=== PATIENT | female | born 1945 | race Two or more races ===

== ENCOUNTER 2016-11-30 06:21 | Day surgery (SDC) | payer OTHER ==
[2016-11-29 14:33] VITALS: BMI 29.2
[2016-11-30] MEDS ORDERED: LIDOCAINE HCL 1%, 10 MG/ML (20ML VIAL) ONE (07:25)
[2016-11-30] MEDS ORDERED: BUPIVACAINE HCL/PF 0.5% (5MG/ML) 10 ML VIAL ONE (07:25)
[2016-11-30] MEDS ORDERED: MIDAZOLAM HCL 2 MG/2 ML SINGLE DOSE VIAL ONE (07:35)
[2016-11-30] MEDS ORDERED: LIDOCAINE HCL/PF 2% SDV 5ML VIAL ONE (07:35)
[2016-11-30] MEDS ORDERED: PROPOFOL 20 ML ONE ×2 (07:35→07:37)
[2016-11-30] MEDS ORDERED: ceFAZolin SODIUM 1 GM VIAL ONE (07:59)
[2016-11-30] MEDS ORDERED: ceFAZolin SODIUM 1 GM VIAL IVPB ONE (08:14)
[2016-11-30] MEDS ORDERED: BACITRACIN 30 GM TUBE TOPICAL OINTMENT ONE (08:16)
[2016-11-30] MEDS ORDERED: LIDOCAINE HCL 1%, 10 MG/ML (20ML VIAL) IJ ONE (08:25)
--- NOTE | 2016-11-30 08:37 | OP ---
Operative Note - Note: Operative Date: 11/30/16 Pre-Operative Diagnosis: L great toe non-healing ulcer with osteomyelitis Operation: L great toe debridement of ulcer and bone biopsy Post-Operative Diagnosis: Same as Pre-op Surgeon: Yogi Esposito Anesthesia: Local, MAC Specimens Removed: Bone, left great toe Estimated Blood Loss (mls): 5 Instrument used (Debridements only): Curette Operative Report Dictated: Yes
[2016-11-30] MEDS ORDERED: oxyCODONE HCL 5 MG TABLET PO PRN (08:40)
[2016-11-30 08:54] VITALS: TEMP 97.4
[2016-11-30] MEDS ORDERED: ONDANSETRON 4 MG/2 ML VIAL IVPUSH PRN (09:50)
[2016-11-30] MEDS ORDERED: LACTATED RINGERS SOLUTION 1,000 ML IV SCH (10:00)
[2016-11-30] MEDS ORDERED: oxyCODONE HCL 5 MG TABLET ONE (10:52)
[2016-11-30] MEDS ORDERED: oxyCODONE HCL 5 MG TABLET PO ONE (11:00)
--- NOTE | 2016-11-30 11:37 | OP ---
DATE OF OPERATION: 11/30/2016 PREOPERATIVE DIAGNOSIS: Left great toe ulcer with osteomyelitis. POSTOPERATIVE DIAGNOSIS: Left great toe ulcer with osteomyelitis. PROCEDURE: Left great toe debridement of ulcer with bone biopsy. SURGEON: Yogi Esposito DPM MANAGEMENT TRAINEE: None. ANESTHESIA: Local with IV sedation. HEMOSTASIS: None. ESTIMATED BLOOD LOSS: Minimal. PATHOLOGY: Distal phalanx left great toe bone. COMPLICATIONS: None. DESCRIBE OF PROCEDURE: The patient was brought to the operating room and placed on the operating room table in the supine position. I applied a pneumatic ankle tourniquet to the left ankle; however, I elected to not use hemostasis during the course of this procedure. Following the induction of IV sedation, local anesthesia was achieved utilizing 7 mL of 2% lidocaine plain. The left foot was then scrubbed, prepped, and draped in the usual aseptic fashion. I directed my attention to the left great toe where an ulcer along the lateral nailfold with exposed matrix was visualized and appreciated. I began the procedure by performing an excisional debridement of subcutaneous tissue and nail matrix to the level of subcutaneous tissue utilizing a small curette. Of note, there was healthy bleeding noted with underlying granular tissue. Once debridement was completed, I made a 2-cm fishmouth incision over the distal medial aspect of the tuft of the toe. The incision was deepened using sharp and blunt dissection taking care to retract vital neural and vascular structures. Next, a transverse periosteal incision was performed to expose the tip of the distal phalanx. Next, a Jamshidi bone biopsy was used to core out a small piece of bone from the distal phalanx. This core of bone was sectioned 1 piece to be sent to Pathology for analysis and the other to be sent as a bone culture. Surgical sites were copiously irrigated with sterile saline. The incision was coapted and maintained utilizing 4-0 nylon in a simple interrupted suture fashion. Following the conclusion of the procedure, the wound bed was dressed with bacitracin, and a sterile compressive dressing was applied to the left foot consisting of sterile gauze, Sujit, and Kerlix. The patient tolerated the procedure and anesthesia well without complications. She was transferred from the operating room to the recovery unit with vital signs stable and neurovasculature intact to the left foot. GUERO LAINEZ/[id number]
[2016-11-30 12:19] VITALS: BP 135/80; PULSE 65
--- NOTE | 2016-12-01 10:11 | PATH ---
Surgical Pathology Report Patient Name: SAMY PATTERSON [facility] [place]. Rec. #: [id number] /Age/Gender: 1945 (Age: 71) / F Account: [id number] Location: [facility] SURGICAL Taken: 11/30/2016 Received: 11/30/2016 Reported: 12/01/2016 Physicians: Yogi Esposito DPM Specimen(s) Received LEFT GREAT TOE DEBRIDEMENT Clinical History Left great toe osteomyelitis Final Diagnosis BONE, LEFT GREAT TOE, DEBRIDEMENT AND BIOPSY: BONE WITH INTERSTITIAL FIBROSIS CONSISTENT WITH REACTIVE CHANGES. NO OSTEOMYELITIS IDENTIFIED. Electronically Signed Ulises Larose M.D. Gross Description Received in formalin, labeled "left great toe debridement," is a 0.2 cm in length x 0.1 cm in diameter polanco, cylindrical portion of bone. The specimen is submitted in toto in one cassette, following decalcification. /11/30/201611/30/2016
== END 2016-11-30 12:00 | disposition home or self-care (01) ==
LOC: JASU-SURG 06:21
PROVIDERS: ATTEND Student in an Organized Health Care Education/Training Program
PROC: 0QBR0ZX Excision of Left Toe Phalanx, Open Approach, Diagnostic (ICD-10-PCS; 2016-11-30)
PROC: 0JBR0ZZ Excision of Left Foot Subcutaneous Tissue and Fascia, Open Approach (ICD-10-PCS; principal; 2016-11-30 07:30)
DX: M86.8X8 Other osteomyelitis, other site (principal); L98.499 Non-pressure chronic ulcer of skin of other sites with unspecified severity
CPT/HCPCS: 87070; 87075; 87186; 87205; 88304-TC; 88311-TC; 94760

== ENCOUNTER 2018-09-16 15:01 | Observation (INO) | payer OTHER ==
[2018-09-16 15:31] VITALS: TEMP 97.4; BMI 28.3
--- NOTE | 2018-09-16 15:59 | PDOC ---
History of Present Illness - General Chief Complaint: Pain Stated Complaint: STOMACH PAIN Time Seen by Provider: 09/16/18 15:59 - History of Present Illness Initial Comments: 09/16/18 16:00 Ms. Engel is a 73 yo female w/ pmh of HTN, HLD, recent CAD (s/p 2 stents in january) who presents for evaluation of 1 day history of right sided abdominal pain. Patient reports she was fine this morning however began having right sided abdominal pain after eating some chicken soup she had made earlier today. Patient endorses taking medications only intermittently and endorses having nausea / vomiting since pain began today as well as urinary throbbing / pain and the sensation of having to urinate (although reports it is difficult currently). Patient is unable to remember all of her medications. Call to pharmacy elicited below: Lisinopril 10mg daily Carvedilol 12.5mg BID atorvastatin 80mg daily (PM) plavix 75mg daily HCTZ 25mg daily ASA 81mg daily The patient denies chest pain, shortness of breath, headache and dizziness. Denies fever, chills, diarrhea and constipation. Past History - Past Medical History Allergies/Adverse Reactions: Allergies Allergy/AdvReac Type Severity Reaction Status Date / Time Sulfa (Sulfonamide Allergy "RINGING Verified 09/16/18 15:13 Antibiotics) IN EARS" [Sulfa(Sulfonamide Antibiotics)] Home Medications: Ambulatory Orders Amlodipine Besylate/Benazepril [Lotrel 5-20 mg Capsule] 1 each PO DAILY Asthma: (HX BRONCHITIS) Cancer: No Cardiac Disorders: No CVA: No COPD: No CHF: No DVT: Yes Dementia: No Diabetes: Yes (BORDERLINE) GI Disorders: Yes (HEARTBURN OCCAS) Disorders: No HTN: Yes Hypercholesterolemia: Yes Liver Disease: No Seizures: No Thyroid Disease: No - Immunization History Immunization Up to Date: Yes - Suicide/Smoking/Psychosocial Hx Smoking Status: No Smoking History: Never smoked Have you smoked in the past 12 months: No Number of Cigarettes Smoked Daily: 0 Information on smoking cessation initiated: No Hx Alcohol Use: No Drug/Substance Use Hx: No Substance Use Type: None Hx Substance Use Treatment: No Review of Systems - Review of Systems Comments:: 09/16/18 16:55 GENERAL/CONSTITUTIONAL: No fever or chills. No weakness. HEAD, EYES, EARS, NOSE AND THROAT: No change in vision. No ear pain or discharge. No sore throat. CARDIOVASCULAR: No chest pain or shortness of breath RESPIRATORY: No cough, wheezing, or hemoptysis. GASTROINTESTINAL: +N/V w/ right sided abdominal pain as described. No diarrhea or constipation. GENITOURINARY: No dysuria, frequency, or change in urination. MUSCULOSKELETAL: No joint or muscle swelling or pain. No neck or back pain. SKIN: No rash NEUROLOGIC: No headache, vertigo, loss of consciousness, or change in strength/ sensation. ENDOCRINE: No increased thirst. No abnormal weight change HEMATOLOGIC/LYMPHATIC: No anemia, easy bleeding, or history of blood clots. ALLERGIC/IMMUNOLOGIC: No hives or skin allergy. *Physical Exam - Vital Signs Last Vital Signs Temp Pulse Resp BP Pulse Ox 97.4 F L 84 16 260/122 H 100 09/16/18 15:02 09/16/18 15:02 09/16/18 15:02 09/16/18 15:02 09/16/18 15:02 - Physical Exam Comments: 09/16/18 16:55 GENERAL: Awake, alert, and fully oriented, in no acute distress HEAD: No signs of trauma, normocephalic, atraumatic EYES: PERRLA, EOMI, sclera anicteric, conjunctiva clear ENT: Auricles normal inspection, hearing grossly normal, nares patent, oropharynx clear without exudates. Moist mucosa NECK: Normal ROM, supple, no lymphadenopathy, JVD, or masses LUNGS: No distress, speaks full sentences, clear to auscultation bilaterally HEART: Regular rate and rhythm, normal S1 and S2, no murmurs, rubs or gallops, peripheral pulses normal and equal bilaterally. ABDOMEN: +Generalized right sided abdominal pain. Soft, normoactive bowel sounds. No guarding, no rebound. No masses EXTREMITIES: Normal inspection, Normal range of motion, no edema. No clubbing or cyanosis. NEUROLOGICAL: Cranial nerves II through XII grossly intact. Normal speech, normal gait, no focal sensorimotor deficits SKIN: Warm, Dry, normal turgor, no rashes or lesions noted. ED Treatment Course - LABORATORY CBC & Chemistry Diagram: 09/16/18 17:05 09/16/18 17:05 Medical Decision Making - Medical Decision Making 09/16/18 16:52 Ms. Engel is a 73 yo female w/ pmh as described who presents for evaluation of symptoms concerning for dissection vs. kidney stone vs. colitis vs. appendicitis. Patient in hypertensive urgency upon arrival as well. Patient given labetalol at presentation for BP control. EKG regular rate, regular rhythm, inversions in III and avf, no ST elevations or depressions. Non-concerning EKG. 09/16/18 20:10 Patient given home dose of coreg for further BP maintenance. Patient resting comfortably and reporting improvement of symptoms after morphine and GI meds. Chest / abd/ pelvis CTA done for evaluation of possible pain etiologies. Patient currently pending CT read. 09/16/18 21:07 CTA negative for acute process. Labs grossly wnl as below. Will admit patient for further evaluation for hypertensive urgency / abdominal pain. Laboratory Results - last 24 hr 09/16/18 09/16/18 09/16/18 17:05 17:05 17:05 WBC 5.7 RBC 4.35 Hgb 13.2 Hct 38.5 MCV 88.5 MCH 30.4 MCHC 34.3 RDW 14.2 Plt Count 312 MPV 9.1 Absolute Neuts (auto) 3.2 Neutrophils % 56.0 Lymphocytes % 26.1 Monocytes % 14.5 H Eosinophils % 2.8 Basophils % 0.6 Nucleated RBC % 0 PT with INR INR PTT (Actin FS) Sodium 142 Potassium 3.9 Chloride 106 Carbon Dioxide 29 Anion Gap 7 L BUN 18 Creatinine 1.2 Creat Clearance w eGFR 43.91 Random Glucose 101 Calcium 9.0 Magnesium Total Bilirubin 0.9 AST 26 ALT 25 Alkaline Phosphatase 145 H Creatine Kinase 81 Troponin I < 0.02 B-Natriuretic Peptide 595.0 H Total Protein 7.1 Albumin 3.1 L Lipase Urine Color Ltyellow Urine Appearance Slcloudy Urine pH 6.0 Ur Specific [place] 1.019 Urine Protein 2+ H Urine Glucose (UA) Negative Urine Ketones Trace H Urine Blood Negative Urine Nitrite Negative Urine Bilirubin Negative Urine Urobilinogen Negative Ur Leukocyte Esterase Negative Urine WBC (Auto) 3 Urine RBC (Auto) 1 Ur Epithelial Cells Moderate Urine Mucus Rare Blood Type Antibody Screen 09/16/18 09/16/18 09/16/18 17:05 17:05 17:05 WBC RBC Hgb Hct MCV MCH MCHC RDW Plt Count MPV Absolute Neuts (auto) Neutrophils % Lymphocytes % Monocytes % Eosinophils % Basophils % Nucleated RBC % PT with INR 11.80 INR 1.00 PTT (Actin FS) 28.6 Sodium Potassium Chloride Carbon Dioxide Anion Gap BUN Creatinine Creat Clearance w eGFR Random Glucose Calcium Magnesium 2.2 Total Bilirubin AST ALT Alkaline Phosphatase Creatine Kinase Troponin I B-Natriuretic Peptide Total Protein Albumin Lipase 107 Urine Color Urine Appearance Urine pH Ur Specific [place] Urine Protein Urine Glucose (UA) Urine Ketones Urine Blood Urine Nitrite Urine Bilirubin Urine Urobilinogen Ur Leukocyte Esterase Urine WBC (Auto) Urine RBC (Auto) Ur Epithelial Cells Urine Mucus Blood Type O POSITIVE Antibody Screen Negative *DC/Admit/Observation/Transfer Diagnosis at time of Disposition: Hypertensive urgency Abdominal pain Qualifiers: Abdominal location: unspecified location Qualified Code(s): R10.9 - Unspecified abdominal pain - Discharge Dispostion Decision to Admit order: Yes - Referrals Referrals: Christiano Jo [Primary Care Provider] - - Patient Instructions - Post Discharge Activity
[2018-09-16] MEDS ORDERED: ASPIRIN 325 MG TABLET PO ONE (16:10)
--- NOTE | 2018-09-16 16:11 | PDOC ---
Attending Attestation - Resident Resident Name: Jose Roberto Chinchilla - ED Attending Attestation I have performed the following: I have examined & evaluated the patient, The case was reviewed & discussed with the resident, I agree w/resident's findings & plan, Exceptions are as noted - HPI HPI: 09/16/18 16:56 73yo female with hx of CAD w 2 stents a year ago, noncompliant with meds, borderline dm presents for eval of abd pain assoc with nausea and pressure in her lower abd. Pt arrives hypertensive. Pt actively vomiting. Pt states she has been constipated x 1 week - had a small hard BM this AM, no blood, but it was hard. Pt denies f/c. No cp/sob/palpitations. Denies dysuria, but c/o suprapubic pain. Also, R flank pain. NBNB vomiting. - Physicial Exam PE: 09/16/18 16:58 Gen: aaox3, appears uncomfortably, retching during exam, hypertensive 220/112 HEENT: mmm, eomi neck: supple heart: +s1s2 reg lungs: cta b/l abd: soft, suprapubic/rll/RUQ ttp, R cva ttp, epigastric ttp ext: no c/c/e neuro: cn ii-xii grossly intact, no focal neuro deficits, muscle strength intact UE and LE - Critical Care Time Total Critical Care Time: 30 Critical Care Statement: The care of this patient involved high complexity decision making to prevent further life threatening deterioration of the patient 's condition and/or to evaluate & treat vital organ system(s) failure or risk of failure. - Medical Decision Making 09/16/18 16:11 I, Dr. Cinthia Rosa, DO, attest that this document has been prepared under my direction and personally reviewed by me in its entirety. I further attest, that it accurately reflects all work, treatment, procedures and medical decision -making performed by me. 09/16/18 17:00 a/p: 73yo female with hx of CAD now with R sided abd pain assoc with nausea and vomiting -uncontrolled BP -tender abd -concern for aortic dissection given labile BP and severely elevated BP - will obtain cta c/a/p -labs -ua, ekg, cxr -will medicate for BP and for nausea/pain -will monitor and reassess 09/16/18 18:34 labs reviewed pt to ct imaging 09/16/18 22:15 pt with hypertensive urgency- will admit for bp control Heart Score/ECG Review - ECG Intrepretation Comment:: 09/16/18 16:52 sinus jefry at 58, L-colin axis, q waves inferior leads, t wave inversions iii and avf, lvh, abnl ekg, no stemi
[2018-09-16] MEDS ORDERED: morphine CARPU-JECT 2 MG/1 ML DISP.SYRIN IVPUSH ONE (16:21)
[2018-09-16] MEDS ORDERED: LABETALOL HCL 5 MG/1 ML (100MG/20 ML VIAL) IVPUSH ONE (16:21)
[2018-09-16] MEDS ORDERED: ONDANSETRON 4 MG/2 ML VIAL IVPUSH ONE (16:21)
[2018-09-16] MEDS ORDERED: FAMOTIDINE 20 MG/50 ML IVPB 20 MG/50 ML MG IVPB ONE ×2 (16:30→16:38)
[2018-09-16] MEDS ORDERED: MORPHINE SULFATE 2 MG/ML VIAL ONE (16:37)
[2018-09-16] MEDS ORDERED: ONDANSETRON 4 MG/2 ML VIAL ONE (16:38)
[2018-09-16] MEDS ORDERED: LABETALOL HCL 5 MG/1 ML (100MG/20 ML VIAL) ONE (16:38)
[2018-09-16 17:25] LABS: URINE APPEARANCE SLCLOUDY; URINE BILIRUBIN NEGATIVE (<2.0 mg/dL); URINE COLOR LTYELLOW; URINE GLUCOSE (UA) NEGATIVE (NEGATIVE); URINE KETONE TRACE (NEGATIVE); URINE LEUK ESTERASE NEGATIVE (NEGATIVE); URINE NITRITE NEGATIVE (NEGATIVE); URINE PROTEIN 2+ (NEGATIVE); URINE UROBILINOGEN NEGATIVE mg/dL (0.2-1.0)
[2018-09-16 17:26] LABS: BASO % 0.6 % (0-2.0); EOS % 2.8 % (0-4.5); HEMATOCRIT 38.5 % (32.4-45.2); HEMOGLOBIN 13.2 GM/dL (10.7-15.3); LYMPH % 26.1 % (8-40); MCH 30.4 pg (25.7-33.7); MCHC 34.3 g/dl (32.0-36.0); MEAN CELL VOLUME 88.5 fl (80-96); MEAN PLT VOLUME 9.1 fl (7.5-11.1); MONO % 14.5 % (3.8-10.2); PLATELET COUNT 312 K/MM3 (134-434); RBC 4.35 M/mm3 (3.60-5.2); RDW 14.2 % (11.6-15.6); WHITE BLOOD COUNT 5.7 K/mm3 (4.0-10.0)
[2018-09-16 17:41] LABS: PROTHROMBIN TIME (PATIENT) 11.8 SEC (9.7-13.0)
[2018-09-16 17:44] LABS: ACTIVATED PTT 28.6 SECONDS (25.2-36.5)
[2018-09-16 18:02] LABS: MAGNESIUM 2.2 mg/dL (1.8-2.4)
[2018-09-16 18:05] LABS: EPI CELLS MODERATE /HPF (FEW); URINE MUCUS RARE
[2018-09-16 18:13] LABS: ALBUMIN 3.1 g/dl (3.4-5.0); ALK PHOS 145 U/L (45-117); ANION GAP 7 MMOL/L (8-16); BILIRUBIN,TOTAL 0.9 mg/dL (0.2-1); BLOOD UREA NITROGEN 18 mg/dL (7-18); CHLORIDE 106 mmol/L (98-107); CO2 29 mmol/L (21-32); CREATININE 1.2 mg/dL (0.55-1.3); GLUCOSE,RANDOM 101 mg/dL (74-106); POTASSIUM 3.9 mmol/L (3.5-5.1); SGOT/AST 26 U/L (15-37); SGPT/ALT 25 U/L (13-61); SODIUM 142 mmol/L (136-145); TOT PROT 7.1 g/dl (6.4-8.2)
[2018-09-16] MEDS ORDERED: CARVEDILOL 12.5 MG TABLET (FP) PO ONE (19:30)
[2018-09-16] MEDS ORDERED: CARVEDILOL 12.5 MG TABLET (FP) ONE (19:32)
[2018-09-16 21:11] VITALS: BP 187/81; PULSE 70
--- NOTE | 2018-09-16 21:42 | PN ---
Teaching Attending Note Name of Resident: Elio Sweeney ATTENDING PHYSICIAN STATEMENT I saw and evaluated the patient. I reviewed the resident's note and discussed the case with the resident. I agree with the resident's findings and plan as documented. SUBJECTIVE: Patient is a 73 year old woman with PMH of HTN, HLD, recent CAD (s/p 2 stents) and boderline DM who presents for evaluation of 1 day history of right sided abdominal pain. Patient reports she was fine this morning however began having right sided abdominal pain after eating some chicken soup she had made earlier today. Patient take her medications only intermittently and has had nausea and vomiting since pain began today as well as urinary throbbing/pain and the sensation of having to urinate. OBJECTIVE: Alert Vital Signs Period Temp Pulse Resp BP Sys/Pagan Pulse Ox Last 24 Hr 97.4 F 63-84 16-18 187-260/81-122 97-100 HEENT: No Jaundice, eye redness or discharge, PERRLA, EOMI. Normocephalic, atraumatic. External ears are normal and hearing is grossly intact. No nasal discharge. Neck: Supple, nontender. No palpable adenopathy or thyromegaly. No JVD Chest: Good effort. Clear to auscultation and percussion. Heart: Regular. No S3, rub or murmur Abdomen: Not distended, soft, nontender and no HSM. No rebound or guarding. Normoactive bowel sounds. Ext: Peripheral pulses intact. No leg edema. Skin: Warm and dry. No petechiae, rash or ecchymosis. Neuro: Alert. Oriented x3. CN 2-12 grossly intact. Sensation grossly intact in all four extremities and DTR are symmetric. Home Medications Medication Instructions Recorded Amlodipine Besylate/Benazepril 1 each PO DAILY 12/08/15 [Lotrel 5-20 mg Capsule] Abnormal Lab Results 09/16/18 09/16/18 09/16/18 17:05 17:05 17:05 Monocytes % 14.5 H Anion Gap 7 L Alkaline Phosphatase 145 H B-Natriuretic Peptide 595.0 H Albumin 3.1 L Urine Protein 2+ H Urine Ketones Trace H ASSESSMENT AND PLAN: 1. Hypertensive urgency and Abdominal Pain - Patient admits to not taking her medications regularly due stress from family issues. EKG shows bradycardia but no ST-T wave changes of ischemia and initial troponin is negative. Result of Chest and abdomen CT scan to rule out aortic dissection is pending. CXR shows increased interstitial marking and RLL atelectasis. Got IV labetalol in the ER and BP has improved. Will restart home antihypertensive drugs and stress nonpharmacologic measures to control hypertension. Admit to telemetry to rule out ACS, get ECHO and fasting lipids. Continue intense patient education about medication compliance. Treat constipation with Miralax and Senna. 2. DVT prophylaxis - Lovenox 40 mg SQ q 24 hours. 3. Advance directives - Full code
[2018-09-16] MEDS ORDERED: SENNOSIDES 8.6MG TABLET (FP) PO PRN (22:41)
[2018-09-16] MEDS ORDERED: HEPARIN NA (PORCINE) 5,000 UNITS/ML 1ML VIAL SQ SCH (22:45)
[2018-09-16] MEDS ORDERED: ONDANSETRON 4 MG TABLET PO PRN (22:48)
[2018-09-16] MEDS ORDERED: HEPARIN NA (PORCINE) 5,000 UNITS/ML 1ML VIAL ONE (23:00)
--- NOTE | 2018-09-16 23:09 | HP ---
CHIEF COMPLAINT: abd pain PCP: Deysi HISTORY OF PRESENT ILLNESS: Pt is a pleasant 73 y/o F with PMH STEMI and CAD (s/p 2 stents 01/2018), borderline DM, HTN, HLD, nonadherence who presented to the ED with complaint of lower abdominal pain radiating to the back. Pain began this morning, was sharp, and has been intermittent. Pt is not currently in any discomfort. Pt has also been having difficulty urinating since this morning. She describes frequency, and mild discomfort, as well as urgency. In ED, pt had 2 episodes of NBNB vomiting consisting of food contents. No longer feels nauseated. Pt states she's had constipation for 3 days. She normally has daily BMs. She had a BM this am, but it was hard. No other complaints. ROS otherwise unremarkable. ER course was notable for: (1) ASA 325, Morphine 2 mg, Labetalol 20IV, 200 PO, Zofran 4, Pepcid 20, Coreg 12.5 (2) (3) Recent Travel: denies PAST MEDICAL HISTORY: STEMI and CAD (s/p 2 stents 01/2018), borderline DM, HTN, HLD, nonadherence PAST SURGICAL HISTORY: cath Social History: Smoking: denies Alcohol: denies Drugs: denies Family History: mother with HTN, EtOH Allergies Sulfa (Sulfonamide Antibiotics) [Sulfa(Sulfonamide Antibiotics)] Allergy ( Verified 09/16/18 15:13) "RINGING IN EARS" HOME MEDICATIONS: Home Medications Medication Instructions Recorded Aspirin [ASA -] 81 mg PO DAILY 09/16/18 Atorvastatin Ca [Lipitor] 80 mg PO HS 09/16/18 Carvedilol [Coreg -] 12.5 mg PO BID 09/16/18 Clopidogrel Bisulfate [Plavix] 75 mg PO DAILY 09/16/18 Hydrochlorothiazide [Hctz -] 25 mg PO DAILY 09/16/18 Lisinopril 10 mg PO DAILY 09/16/18 REVIEW OF SYSTEMS CONSTITUTIONAL: Absent: fever, chills, diaphoresis, generalized weakness, malaise, loss of appetite, weight change HEENT: Absent: rhinorrhea, nasal congestion, throat pain, throat swelling, difficulty swallowing, mouth swelling, ear pain, eye pain, visual changes CARDIOVASCULAR: Absent: chest pain, syncope, palpitations, irregular heart rate, lightheadedness , peripheral edema RESPIRATORY: Absent: cough, shortness of breath, dyspnea with exertion, orthopnea, wheezing, stridor, hemoptysis GASTROINTESTINAL:abdominal pain, constipation Absent: , abdominal distension, nausea, vomiting, diarrhea, melena, hematochezia GENITOURINARY: dysuria, frequency, urgency Absent: , hesitancy, hematuria, flank pain, genital pain MUSCULOSKELETAL: Absent: myalgia, arthralgia, joint swelling, back pain, neck pain SKIN: Absent: rash, itching, pallor HEMATOLOGIC/IMMUNOLOGIC: Absent: easy bleeding, easy bruising, lymphadenopathy, frequent infections ENDOCRINE: Absent: unexplained weight gain, unexplained weight loss, heat intolerance, cold intolerance NEUROLOGIC: Absent: headache, focal weakness or paresthesias, dizziness, unsteady gait, seizure, mental status changes, bladder or bowel incontinence PSYCHIATRIC: Absent: anxiety, depression, suicidal or homicidal ideation, hallucinations. PHYSICAL EXAMINATION Vital Signs - 24 hr 09/16/18 09/16/18 09/16/18 15:02 17:06 19:30 Temperature 97.4 F L Pulse Rate 84 Pulse Rate [ 63 Left] Respiratory 16 18 Rate Blood Pressure 260/122 H Blood Pressure 208/82 H 218/88 H [Right Arm] O2 Sat by Pulse 100 98 Oximetry (%) 09/16/18 21:10 Temperature Pulse Rate Pulse Rate [ 70 Left] Respiratory 18 Rate Blood Pressure Blood Pressure 187/81 H [Right Arm] O2 Sat by Pulse 97 Oximetry (%) Gen: NAD, AAO x 3 HEENT: NCAT, EOMI Neck: supple, no jvd Cardio: rrr, normal s1s2, 3-4/6 systolic murmur LUSB, no rub/gallop Pulm: cta b/l Abd: soft, nontender, no guarding, very mild R CVA tenderness to palpation Ext: 2+ pulses, no edema Neuro: Strength/sensation intact throughout Laboratory Results - last 24 hr 09/16/18 09/16/18 09/16/18 17:05 17:05 17:05 WBC 5.7 RBC 4.35 Hgb 13.2 Hct 38.5 MCV 88.5 MCH 30.4 MCHC 34.3 RDW 14.2 Plt Count 312 MPV 9.1 Absolute Neuts (auto) 3.2 Neutrophils % 56.0 Lymphocytes % 26.1 Monocytes % 14.5 H Eosinophils % 2.8 Basophils % 0.6 Nucleated RBC % 0 PT with INR INR PTT (Actin FS) Sodium 142 Potassium 3.9 Chloride 106 Carbon Dioxide 29 Anion Gap 7 L BUN 18 Creatinine 1.2 Creat Clearance w eGFR 43.91 Random Glucose 101 Calcium 9.0 Magnesium Total Bilirubin 0.9 AST 26 ALT 25 Alkaline Phosphatase 145 H Creatine Kinase 81 Troponin I < 0.02 B-Natriuretic Peptide 595.0 H Total Protein 7.1 Albumin 3.1 L Lipase Urine Color Ltyellow Urine Appearance Slcloudy Urine pH 6.0 Ur Specific [place] 1.019 Urine Protein 2+ H Urine Glucose (UA) Negative Urine Ketones Trace H Urine Blood Negative Urine Nitrite Negative Urine Bilirubin Negative Urine Urobilinogen Negative Ur Leukocyte Esterase Negative Urine WBC (Auto) 3 Urine RBC (Auto) 1 Ur Epithelial Cells Moderate Urine Mucus Rare Blood Type Antibody Screen 09/16/18 09/16/18 09/16/18 17:05 17:05 17:05 WBC RBC Hgb Hct MCV MCH MCHC RDW Plt Count MPV Absolute Neuts (auto) Neutrophils % Lymphocytes % Monocytes % Eosinophils % Basophils % Nucleated RBC % PT with INR 11.80 INR 1.00 PTT (Actin FS) 28.6 Sodium Potassium Chloride Carbon Dioxide Anion Gap BUN Creatinine Creat Clearance w eGFR Random Glucose Calcium Magnesium 2.2 Total Bilirubin AST ALT Alkaline Phosphatase Creatine Kinase Troponin I B-Natriuretic Peptide Total Protein Albumin Lipase 107 Urine Color Urine Appearance Urine pH Ur Specific [place] Urine Protein Urine Glucose (UA) Urine Ketones Urine Blood Urine Nitrite Urine Bilirubin Urine Urobilinogen Ur Leukocyte Esterase Urine WBC (Auto) Urine RBC (Auto) Ur Epithelial Cells Urine Mucus Blood Type O POSITIVE Antibody Screen Negative ASSESSMENT/PLAN: Pt is a 73 y/o F with PMH STEMI and CAD (s/p 2 stents 01/2018), borderline DM, HTN, HLD, nonadherence who presented to ED with complaint of abdominal pain. Pt had n/v in ED and HTN. #HTN urgency -initially 260/122 -pt did not take any meds this am -BP brought to 187/81 after labetalol, coreg -will resume home meds in am (Lisinopril, Carved, Hctz) -monitor BP #Abd pain -Resolved -dissection ruled out by CTA #Constipation -Miralax -Senna #CAD -STEMI in 01/2018 -Repeat Trop -repeat EKG -Echo in am #borderline DM -glucose wnl on admission -BGM -ISS #HLD -c/w statin #nonadherence -pt counselled extensively #FEN -not on fluids -lytes wnl -Na controlled diet #PPx -Hep SubQ #Dispo -Tele Obs for HTN urgency Elio Sweeney MD PGY-2 IM Visit type - Emergency Visit Emergency Visit: Yes ED Registration Date: 09/16/18 Care time: The patient presented to the Emergency Department on the above date and was hospitalized for further evaluation of their emergent condition. - New Patient This patient is new to me today: Yes Date on this admission: 09/16/18 - Critical Care Critical Care patient: No
[2018-09-17] MEDS ORDERED: POLYETHYLENE GLYCOL 3350 119 GM BTL PO SCH (10:00)
[2018-09-17] MEDS ORDERED: ASPIRIN 81 MG CHEWABLE TABLETS PO SCH (10:00)
[2018-09-17] MEDS ORDERED: CARVEDILOL 12.5 MG TABLET (FP) PO SCH (10:00)
[2018-09-17] MEDS ORDERED: CLOPIDOGREL BISULFATE 75 MG TABLET (FP) PO SCH (10:00)
[2018-09-17] MEDS ORDERED: HYDROCHLOROTHIAZIDE 25 MG TABLET (FP) PO SCH (10:00)
[2018-09-17] MEDS ORDERED: LISINOPRIL 10 MG TABLET (FP) PO SCH (10:00)
--- NOTE | 2018-09-17 13:42 | EKG ---
Test Reason : Blood Pressure : / mmHG Vent. Rate : 058 BPM Atrial Rate : 058 BPM P-R Int : 182 ms QRS Dur : 076 ms QT Int : 438 ms P-R-T Axes : 036 -19 001 degrees QTc Int : 429 ms SINUS BRADYCARDIA POSSIBLE LEFT ATRIAL ENLARGEMENT LEFT VENTRICULAR HYPERTROPHY ABNORMAL ECG WHEN COMPARED WITH ECG OF 10-FEB-2018 19:45, [place] INTERVAL HAS DECREASED ST NO LONGER ELEVATED IN INFERIOR LEADS ST NO LONGER DEPRESSED IN LATERAL LEADS T WAVE INVERSION NOW EVIDENT IN INFERIOR LEADS T WAVE INVERSION NO LONGER EVIDENT IN LATERAL LEADS Confirmed by TATIANA SMITH MD ([id number] on 09/17/2018 1:41:46 PM Referred By: Confirmed By:TATIANA SMITH MD
[2018-09-17] MEDS ORDERED: ATORVASTATIN CA 80 MG TABLET (FP) PO SCH (22:00)
== END 2018-09-17 03:16 | disposition left against medical advice (07) ==
LOC: JER 15:01 → JERBED 21:04 → INTOOBSV 21:04 → UNDOADMOB 21:04 → JERBED 22:22
PROVIDERS: ADMIT Internal Medicine; ATTEND Internal Medicine
PROC: 3E033GC Introduction of Other Therapeutic Substance into Peripheral Vein, Percutaneous Approach (ICD-10-PCS; principal; 2018-09-16)
PROC: 3E013GC Introduction of Other Therapeutic Substance into Subcutaneous Tissue, Percutaneous Approach (ICD-10-PCS; 2018-09-16)
DX: I16.0 Hypertensive urgency (principal); R00.1 Bradycardia, unspecified; R10.9 Unspecified abdominal pain; I10 Essential (primary) hypertension; E78.5 Hyperlipidemia, unspecified; R73.03 Prediabetes; K59.00 Constipation, unspecified; I25.2 Old myocardial infarction; Z95.5 Presence of coronary angioplasty implant and graft; Z88.2 Allergy status to sulfonamides; Z86.718 Personal history of other venous thrombosis and embolism; Z91.14 Patient's other noncompliance with medication regimen
CPT/HCPCS: 36415; 71045-TC-FY; 71275-TC; 74174-TC; 80053; 81003; 81015; 82550; 83690; 83735; 83880; 84484; 85025; 85610; 85730; 86850; 86900; 86901; 87086; 93005; 93010; 96365; 96372; 96375; 99284-25; G0378; J1644

== ENCOUNTER 2019-01-18 15:24 | Observation (INO) | payer OTHER ==
[2019-01-18 15:30] VITALS: BMI 30.9
--- NOTE | 2019-01-18 15:35 | PDOC ---
Rapid Medical Evaluation Chief Complaint: Pain Time Seen by Provider: 01/18/19 15:26 Medical Evaluation: Allergies Allergy/AdvReac Type Severity Reaction Status Date / Time Sulfa (Sulfonamide Allergy "RINGING Verified 01/18/19 15:30 Antibiotics) IN EARS" [Sulfa(Sulfonamide Antibiotics)] Vital Signs Temp Pulse Resp BP Pulse Ox 97.9 F 69 18 241/115 H 97 01/18/19 15:27 01/18/19 15:27 01/18/19 15:27 01/18/19 15:27 01/18/19 15:27 01/18/19 15:31 I have performed a brief in-person evaluation of this patient. The patient presents with a chief complaint of: h/o HTN and UT in January of last year present with complain of epigastric abdominal pains radiating to the back with dizziness since yesterday. Denies CP, SOB, N/V, sweats, numbness or tingling sensation Pertinent physical exam findings: A&O x 3 in NAD. cardio RRR I have ordered the following:CBC,CMP,cardiac profile, EKG, UA, UCx The patient will proceed to the ED for further evaluation. Discharge Disposition - Diagnosis Dizziness Abdominal pain Qualifiers: Abdominal location: unspecified location Qualified Code(s): R10.9 - Unspecified abdominal pain - Discharge Dispostion Condition at time of disposition: Stable - Referrals - Patient Instructions - Post Discharge Activity
--- NOTE | 2019-01-18 16:03 | PDOC ---
History of Present Illness - General Chief Complaint: Pain Stated Complaint: abd pain, dizziness Time Seen by Provider: 01/18/19 15:26 History Source: Patient Exam Limitations: No Limitations - History of Present Illness Initial Comments: 01/18/19 16:03 73YOF with h/o STEMI and CAD (s/p 2 stents 01/2018), borderline DM, HTN, HLD, and nonadherence to her medication regimen who p/w intermittent lightheadedness and SOB over the past 2 days, as well as BLE swelling which she states has been happening intermittently for many months. 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 She has not taken her HCTZ for many months. She also takes lisinopril and carvedilol. She notes recent mild diffuse abdominal and flank pain for the past few months, but otherwise denies any new symptoms (no f/c/n/v/d/c, black/bloody stool, JOHNSON, neck pain, chest pain, hematuria, dysuria, n/t/w focally, etc). She cannot remember her last echocardiogram or stress test. Past History - Past Medical History Allergies/Adverse Reactions: Allergies Allergy/AdvReac Type Severity Reaction Status Date / Time Sulfa (Sulfonamide Allergy "RINGING Verified 01/18/19 15:30 Antibiotics) IN EARS" [Sulfa(Sulfonamide Antibiotics)] Home Medications: Ambulatory Orders Aspirin [ASA -] 81 mg PO DAILY 09/16/18 Atorvastatin Ca [Lipitor] 80 mg PO HS 09/16/18 Carvedilol [Coreg -] 12.5 mg PO BID 09/16/18 Clopidogrel Bisulfate [Plavix] 75 mg PO DAILY 09/16/18 Hydrochlorothiazide [Hctz -] 25 mg PO DAILY 09/16/18 Lisinopril 40 mg PO DAILY 09/16/18 Asthma: (HX BRONCHITIS) Cancer: No Cardiac Disorders: Yes ([place]) CVA: No COPD: No CHF: No DVT: Yes Dementia: No Diabetes: Yes (BORDERLINE) GI Disorders: Yes (HEARTBURN OCCAS) Disorders: No HTN: Yes Hypercholesterolemia: Yes Liver Disease: No Seizures: No Thyroid Disease: No - Immunization History Immunization Up to Date: Yes - Suicide/Smoking/Psychosocial Hx Smoking Status: No Smoking History: Never smoked Have you smoked in the past 12 months: No Number of Cigarettes Smoked Daily: 0 Information on smoking cessation initiated: No Hx Alcohol Use: No Drug/Substance Use Hx: No Substance Use Type: None Hx Substance Use Treatment: No Review of Systems - Review of Systems Able to Perform ROS?: Yes Comments:: 01/18/19 16:09 GEN: no fever, chills, malaise, generalized weakness, or weight change HEENT: no ear pain, sore throat, vision change, or eye pain CV: lightheadedness, edema, no chest pain, palpitations, or syncope RESP: no cough, wheezing, or SOB GI: mild chronic abdominal/flank pain, no nausea, vomiting, diarrhea, constipation, or white/black/bloody stool : no dysuria, hematuria, incontinence, retention, bleeding, or discharge MSK: no neck/back pain, muscle weakness/pain, or joint swelling/pain NEURO: no headache, seizure, vertigo, numbness, tingling, or focal weakness PSYCH: no substance use, no behavior change SKIN: no jaundice, no rash ROS otherwise negative except as noted in HPI *Physical Exam - Vital Signs Last Vital Signs Temp Pulse Resp BP Pulse Ox 97.9 F 69 18 241/115 H 97 01/18/19 15:27 01/18/19 15:27 01/18/19 15:27 01/18/19 15:27 01/18/19 15:27 - Physical Exam Comments: 01/18/19 16:10 GENERAL: well-appearing and comfortable, A/Ox4, no distress, answers questions appropriately HEENT: PERRLA, EOMI, moist mucous membranes NECK/BACK: no midline ttp, no spinal stepoff or deformity, no hematoma, full ROM , neck supple CARDIOVASCULAR: regular rate/rhythm, normal S1S2, no MGR, strong peripheral pulses, capillary refill <2 seconds, extremities wwp, 2+ BLE pitting edema LUNGS/RESPIRATORY: no respiratory distress, speaking full sentences, CTAB GI/ABDOMEN: symmetric [id number], normoactive BS, soft, no ttp, no midline pulsatile masses : no CVA tenderness EXTREMITIES: no muscle atrophy, no acute deformity SKIN: warm and dry, no pallor, no jaundice, no rash, no bruising, no skin breakdown, no cuts, no lesions NEUROLOGICAL: GCS 15, CN II-XII grossly intact, 5/5 strength proximally and distally, no facial droop Heart Score/ECG Review #1 Sinus rhythm, rate of 64, normal axis and intervals, left atrial enlargement, TWI in III, TW flattening in aVF and V56 ED Treatment Course - LABORATORY CBC & Chemistry Diagram: 01/18/19 16:13 01/18/19 16:13 Medical Decision Making - Medical Decision Making 01/18/19 16:11 Pt with h/o CHF who p/w lightheadedness, SOB, and leg swelling in the setting of non-adherence to HTN medications. Initial Vital Signs Temp Pulse Resp BP Pulse Ox 97.9 F 69 18 241/115 H 97 01/18/19 15:27 01/18/19 15:27 01/18/19 15:27 01/18/19 15:27 01/18/19 15:27 Exam: As noted in Physical Exam section. DDX IBNLT: CHF, pulmonary edema, COPD, asthma, other lung disease, PNA/ bronchitis, anemia, ACS, pericarditis, tamponade, AD, PE, PTX, allergic reaction , malignancy (e.g. causing pericardial effusion or vascular shunt), other infection, pulmonary HTN, etc. W/U ordered: CBCD CMP Mg Phos Troponin CK CKMB BNP Blood Gas UA UCx EKG CXR TX ordered: HCTZ EKG: Reviewed; results as noted in ECG Review section. RAD/CHEST PA LAT Chest: Pain. 2 views of the chest reveal a prominent mediastinum with congestive changes, fluid in the horizontal fissure and some atelectasis and pleural reaction at the bases. There are degenerative changes with wedging. Correlation recommended. Laboratory Tests 01/18/19 01/18/19 01/18/19 15:58 16:13 16:13 WBC 5.2 RBC 3.96 Hgb 11.8 Hct 35.6 MCV 89.9 MCH 29.7 MCHC 33.1 RDW 13.9 Plt Count 252 MPV 8.5 Absolute Neuts (auto) 3.0 Neutrophils % 57.5 Lymphocytes % 23.8 Monocytes % 14.6 H Eosinophils % 3.0 Basophils % 1.1 Nucleated RBC % 0 Sodium 145 Potassium 4.2 Chloride 108 H Carbon Dioxide 26 Anion Gap 10 BUN 13 Creatinine 0.8 Creat Clearance w eGFR 70.12 Random Glucose 87 Calcium 8.6 Total Bilirubin 0.4 AST 21 ALT 25 Alkaline Phosphatase 141 H Creatine Kinase 60 Troponin I < 0.02 B-Natriuretic Peptide 805.3 H Total Protein 6.4 Albumin 2.9 L Urine Color Yellow Urine Appearance Clear Urine pH 7.5 D Ur Specific [place] 1.012 Urine Protein Negative Urine Glucose (UA) Negative Urine Ketones Negative Urine Blood Negative Urine Nitrite Negative Urine Bilirubin Negative Urine Urobilinogen 0.2 Ur Leukocyte Esterase Negative Reassessment: Patient states feels fine except needing to urinate frequently. Vital signs are followed closely throughout ED visit as her BP is refractory to meds. She is given the initial HCTZ, also 1 inch NTG paste, also labetalol 20 mg later followed by 40 mg IVPUSH. The following are her vitals trends. Vital Signs - 24 hr 01/18/19 01/18/19 01/18/19 15:27 16:21 18:03 Temperature 97.9 F 98.6 F 97.8 F Pulse Rate 69 Pulse Rate [ 84 62 Left Apical] Respiratory 18 16 Rate Blood Pressure 241/115 H Blood Pressure 199/93 H 209/100 H [Left Arm] O2 Sat by Pulse 97 98 99 Oximetry (%) 01/18/19 01/18/19 19:02 19:13 Temperature Pulse Rate Pulse Rate [ 61 64 Left Apical] Respiratory 16 Rate Blood Pressure Blood Pressure 181/77 H 181/76 H [Left Arm] O2 Sat by Pulse 96 Oximetry (%) She is also given her nighttime dose of carvedilol PO. ADMIT The Pt is unsafe for discharge at this time. They require further hospital observation, workup, and treatment. Microblog sent to [facility] for admission. Blank Decision to Admit order is placed per ED protocol. Spoke with admitting team bilingual sales representative, in agreement Pt going to Tele Obs. Decision to Admit order corrected with admitting team covering attendings name Dr. Miles. Vital Signs Temperature 97.8 F 01/18/19 18:03 Pulse Rate 64 01/18/19 19:13 Respiratory Rate 16 01/18/19 19:02 Blood Pressure 169/79 01/18/19 21:47 O2 Sat by Pulse Oximetry (%) 96 01/18/19 19:02 *DC/Admit/Observation/Transfer Diagnosis at time of Disposition: Dizziness, Leg edema, Hypertensive urgency - Discharge Dispostion Condition at time of disposition: Guarded Decision to Admit order: Yes - Referrals - Patient Instructions - Post Discharge Activity
--- NOTE | 2019-01-18 16:16 | PDOC ---
Attending Attestation - HPI HPI: 01/18/19 16:29 The patient is a 73 year old female, with a significant past medical history of STEMI and CAD (s/p 2 stents 01/2018), borderline DM, HTN, HLD, and nonadherence to her medication regimen who presents to the ED with complaint of intermittent lightheadedness and shortness of breath for 2 days with associated bilateral lower extremity swelling. She states she is not always compliant to her medication regimen. The patient denies chest pain, headache and dizziness. The patient denies fever , chills, nausea, vomit, diarrhea and constipation. The patient denies dysuria, frequency, urgency and hematuria. Allergies: NKDA - Physicial Exam PE: 01/18/19 17:17 GENERAL: Awake, alert, and fully oriented, in no acute distress HEAD: No signs of trauma EYES: PERRLA, EOMI, sclera anicteric, conjunctiva clear ENT: Auricles normal inspection, hearing grossly normal, nares patent, oropharynx clear without exudates. Moist mucosa NECK: Normal ROM, supple, no lymphadenopathy, JVD, or masses LUNGS: Breath sounds equal, clear to auscultation bilaterally. No wheezes, and no crackles HEART: Regular rate and rhythm, normal S1 and S2, no murmurs, rubs or gallops ABDOMEN: Soft, nontender, normoactive bowel sounds. No guarding, no rebound. No masses EXTREMITIES: (+) 2+ pitting edema. Normal range of motion, No clubbing or cyanosis. No cords, erythema, or tenderness NEUROLOGICAL: Cranial nerves II through XII grossly intact. Normal speech, normal gait SKIN: Warm, Dry, normal turgor, no rashes or lesions noted. <Antonia Lucas - Last Filed: 01/18/19 17:17> - Resident Resident Name: Anahi Paige - ED Attending Attestation I have performed the following: I have examined & evaluated the patient, The case was reviewed & discussed with the resident, I agree w/resident's findings & plan, Exceptions are as noted - Critical Care Time Total Critical Care Time: 35 Critical Care Statement: The care of this patient involved high complexity decision making to prevent further life threatening deterioration of the patient 's condition and/or to evaluate & treat vital organ system(s) failure or risk of failure. - Medical Decision Making 01/18/19 16:16 I, Dr. Cinthia Rosa, DO, attest that this document has been prepared under my direction and personally reviewed by me in its entirety. I further attest, that it accurately reflects all work, treatment, procedures and medical decision -making performed by me. 01/18/19 18:17 a/p: 73yo female with a feeling of near syncope with elevated BP today -pt states noncompliant with HCTZ -does take her lisinopril daily -hx of CAD with stents a year ago at [facility] -denies cp, but has increasing SOB x 2 days ranjeet when walking -no espinosa, no blurred vision -no abd pain, no n/v/d -pt with b/l LE swelling, no calf cramping -suspect lightheaded from hypertensive urgency, will eval for hypertensive emergency -will monitor and reassess 01/18/19 18:51 labs reviewed still bp 200 despite iv meds will increase to 1in past 01/18/19 19:57 resident discussed the case with JEANNETTE who accepts pt to service <Cinthia Rosa - Last Filed: 01/18/19 19:57> Heart Score/ECG Review - ECG Intrepretation Comment:: 01/18/19 19:13 sinus at 64, nl axis, nl interval, LVH, no acute st/t wave findings <Cinthia Rosa - Last Filed: 01/18/19 19:57> Attestations - Attestations 01/18/19 16:29 Documentation prepared by Antonia Lucas, acting as medical office receptionist assistant for Cinthia Rosa DO <Antonia Lucas - Last Filed: 01/18/19 17:17>
[2019-01-18] MEDS ORDERED: HYDROCHLOROTHIAZIDE 25 MG TABLET (FP) PO ONE (16:19)
[2019-01-18] MEDS ORDERED: NITROGLYCERIN 2% OINTMENT - 1GM PACKET TD ONE ×4 (16:19→19:16)
[2019-01-18 16:25] LABS: BASO % 1.1 % (0-2.0); HEMATOCRIT 35.6 % (32.4-45.2); HEMOGLOBIN 11.8 GM/dL (10.7-15.3); LYMPH % 23.8 % (8-40); MCH 29.7 pg (25.7-33.7); MCHC 33.1 g/dl (32.0-36.0); MEAN CELL VOLUME 89.9 fl (80-96); MEAN PLT VOLUME 8.5 fl (7.5-11.1); MONO % 14.6 % (3.8-10.2); NEUT % 57.5 % (42.8-82.8); PLATELET COUNT 252 K/MM3 (134-434); RBC 3.96 M/mm3 (3.60-5.2); RDW 13.9 % (11.6-15.6); WHITE BLOOD COUNT 5.2 K/mm3 (4.0-10.0)
[2019-01-18] MEDS ORDERED: HYDROCHLOROTHIAZIDE 25 MG TABLET (FP) ONE (16:25)
[2019-01-18 16:42] LABS: PH,URINE 7.5 (5.0-8.0); URINE APPEARANCE CLEAR; URINE BILIRUBIN NEGATIVE (NEGATIVE); URINE COLOR YELLOW; URINE GLUCOSE (UA) NEGATIVE (NEGATIVE); URINE KETONE NEGATIVE (NEGATIVE); URINE LEUK ESTERASE NEGATIVE (NEGATIVE); URINE NITRITE NEGATIVE (NEGATIVE); URINE PROTEIN NEGATIVE (NEGATIVE); URINE UROBILINOGEN 0.2 mg/dL (0.2-1.0)
[2019-01-18 16:58] LABS: ALBUMIN 2.9 g/dl (3.4-5.0); ALK PHOS 141 U/L (45-117); ANION GAP 10 MMOL/L (8-16); BILIRUBIN,TOTAL 0.4 mg/dL (0.2-1); BLOOD UREA NITROGEN 13 mg/dL (7-18); CALCIUM 8.6 mg/dL (8.5-10.1); CHLORIDE 108 mmol/L (98-107); CO2 26 mmol/L (21-32); CREATININE 0.8 mg/dL (0.55-1.3); GLUCOSE,RANDOM 87 mg/dL (74-106); POTASSIUM 4.2 mmol/L (3.5-5.1); SGOT/AST 21 U/L (15-37); SGPT/ALT 25 U/L (13-61); SODIUM 145 mmol/L (136-145); TOT PROT 6.4 g/dl (6.4-8.2)
[2019-01-18 18:34] LABS: N-TERMINAL BNP 805.3 pg/ml (5-125)
[2019-01-18] MEDS ORDERED: LABETALOL HCL 5 MG/1 ML (100MG/20 ML VIAL) IVPUSH ONE ×2 (18:43→20:20)
--- NOTE | 2019-01-18 19:19 | HP ---
CHIEF COMPLAINT:lightheadedness. PCP:DR SHAH HISTORY OF PRESENT ILLNESS: 73YOF with h/o STEMI and CAD (s/p 2 stents 01/2018), borderline DM, HTN, HLD, and nonadherence to her medication regimen who p/w intermittent lightheadedness and SOB over the past 2 days, as well as BLE swelling which she states has been happening intermittently for many months. 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 She has not taken her HCTZ for many months. She also takes lisinopril and carvedilol. She notes recent mild diffuse abdominal and flank pain for the past few months, but otherwise denies any new symptoms (no f/c/n/v/d/c, black/bloody stool, JOHNSON, neck pain, chest pain, hematuria, dysuria, n/t/w focally, etc). She cannot remember her last echocardiogram or stress test. ER course was notable for: (1)EKG with no St, T wave changes (2)Labetolol 20 IV push , nitroglycerine past , HCTZ 12.5 (3)CBC, CMP , trop negative Recent Travel: denies PAST MEDICAL HISTORY: STEMI and CAD (s/p 2 stents 01/2018), borderline DM, HTN, HLD, nonadherence PAST SURGICAL HISTORY: cath Social History: Smoking: denies Alcohol: denies Drugs: denies Family History: mother with HTN, EtOH Allergies Sulfa (Sulfonamide Antibiotics) [Sulfa(Sulfonamide Antibiotics)] Allergy ( Verified 01/18/19 15:30) "RINGING IN EARS" HOME MEDICATIONS: Home Medications Medication Instructions Recorded Aspirin [ASA -] 81 mg PO DAILY 09/16/18 Atorvastatin Ca [Lipitor] 80 mg PO HS 09/16/18 Carvedilol [Coreg -] 12.5 mg PO BID 09/16/18 Clopidogrel Bisulfate [Plavix] 75 mg PO DAILY 09/16/18 Hydrochlorothiazide [Hctz -] 25 mg PO DAILY 09/16/18 Lisinopril 40 mg PO DAILY 09/16/18 REVIEW OF SYSTEMS CONSTITUTIONAL: Absent: fever, chills, diaphoresis, generalized weakness, malaise, loss of appetite, weight change HEENT: Absent: rhinorrhea, nasal congestion, throat pain, throat swelling, difficulty swallowing, mouth swelling, ear pain, eye pain, visual changes CARDIOVASCULAR: Absent: chest pain, syncope, palpitations, irregular heart rate, lightheadedness , peripheral edema RESPIRATORY: Absent: cough, shortness of breath, dyspnea with exertion, orthopnea, wheezing, stridor, hemoptysis GASTROINTESTINAL: Absent: abdominal pain, abdominal distension, nausea, vomiting, diarrhea, constipation, melena, hematochezia GENITOURINARY: Absent: dysuria, frequency, urgency, hesitancy, hematuria, flank pain, genital pain MUSCULOSKELETAL: Absent: myalgia, arthralgia, joint swelling, back pain, neck pain SKIN: Absent: rash, itching, pallor HEMATOLOGIC/IMMUNOLOGIC: Absent: easy bleeding, easy bruising, lymphadenopathy, frequent infections ENDOCRINE: Absent: unexplained weight gain, unexplained weight loss, heat intolerance, cold intolerance NEUROLOGIC: Absent: headache, focal weakness or paresthesias, dizziness, unsteady gait, seizure, mental status changes, bladder or bowel incontinence PSYCHIATRIC: Absent: anxiety, depression, suicidal or homicidal ideation, hallucinations. PHYSICAL EXAMINATION Vital Signs - 24 hr 01/18/19 01/18/19 01/18/19 15:27 16:21 18:03 Temperature 97.9 F 98.6 F 97.8 F Pulse Rate 69 Pulse Rate [ 84 62 Left Apical] Respiratory 18 16 Rate Blood Pressure 241/115 H Blood Pressure 199/93 H 209/100 H [Left Arm] O2 Sat by Pulse 97 98 99 Oximetry (%) 01/18/19 01/18/19 19:02 19:13 Temperature Pulse Rate Pulse Rate [ 61 64 Left Apical] Respiratory 16 Rate Blood Pressure Blood Pressure 181/77 H 181/76 H [Left Arm] O2 Sat by Pulse 96 Oximetry (%) GENERAL: AAOx3 in NAD HEAD: NC/AT EYES: EOMI, Conjunctiva clear, sclera anicteric ENT: moist mucous membrane NECK: Supple, no JVD LUNGS: CTA B/L, no crackles no wheezing no accessory muscle use. HEART: RRR, NSR, normal s1, s2, no M/R/G ABDOMEN: Soft, ND, NT, +BS 4 Q, + CVA Tenderness LOWER EXTREMITIES: no edema, +2DP pulse, NEUROLOGICAL: No focal deficit. Normal speech. gait not observed. PSYCHIATRIC: Cooperative. Good eye contact. Appropriate mood and affect. SKIN: Warm, dry, Laboratory Results - last 24 hr 01/18/19 01/18/19 01/18/19 15:58 16:13 16:13 WBC 5.2 RBC 3.96 Hgb 11.8 Hct 35.6 MCV 89.9 MCH 29.7 MCHC 33.1 RDW 13.9 Plt Count 252 MPV 8.5 Absolute Neuts (auto) 3.0 Neutrophils % 57.5 Lymphocytes % 23.8 Monocytes % 14.6 H Eosinophils % 3.0 Basophils % 1.1 Nucleated RBC % 0 Sodium 145 Potassium 4.2 Chloride 108 H Carbon Dioxide 26 Anion Gap 10 BUN 13 Creatinine 0.8 Creat Clearance w eGFR 70.12 Random Glucose 87 Calcium 8.6 Total Bilirubin 0.4 AST 21 ALT 25 Alkaline Phosphatase 141 H Creatine Kinase 60 Troponin I < 0.02 B-Natriuretic Peptide 805.3 H Total Protein 6.4 Albumin 2.9 L Urine Color Yellow Urine Appearance Clear Urine pH 7.5 D Ur Specific [place] 1.012 Urine Protein Negative Urine Glucose (UA) Negative Urine Ketones Negative Urine Blood Negative Urine Nitrite Negative Urine Bilirubin Negative Urine Urobilinogen 0.2 Ur Leukocyte Esterase Negative 01/18/19 16:13 WBC RBC Hgb Hct MCV MCH MCHC RDW Plt Count MPV Absolute Neuts (auto) Neutrophils % Lymphocytes % Monocytes % Eosinophils % Basophils % Nucleated RBC % Sodium Potassium Chloride Carbon Dioxide Anion Gap BUN Creatinine Creat Clearance w eGFR Random Glucose Calcium Total Bilirubin AST ALT Alkaline Phosphatase Creatine Kinase Cancelled Troponin I Cancelled B-Natriuretic Peptide Total Protein Albumin Urine Color Urine Appearance Urine pH Ur Specific [place] Urine Protein Urine Glucose (UA) Urine Ketones Urine Blood Urine Nitrite Urine Bilirubin Urine Urobilinogen Ur Leukocyte Esterase CBC, BMP 01/18/19 16:13 01/18/19 16:13 ASSESSMENT/PLAN: 73YOF with h/o STEMI and CAD (s/p 2 stents 01/2018), borderline DM, HTN, HLD, and nonadherence to her medication regimen who p/w intermittent lightheadedness and SOB over the past 2 days, as well as BLE swelling which she states has been happening intermittently for many months. admitted to tele obs for HTN urgency # HTN uregency /R.O HTN emergency * BP 241 /115 given in ED Labetolol 20 IV push , nitroglycerin past, and HCTZ 12.5 drop to 181/76 * dont drop more than 20-30% first 24 hour * Monitor in tele * adjust home meds increase coreg to 25BID , Split lisinopril to 20 BID instead of 40 Daily , decrease HCTZ to 12.5 daily as no difference between [address] Delgado * child and family counselor about medication compliance * repeat Echo # CVA tenderness , UA negative if did not improve will do US Kidneys # H/O STEMI / CAD * trend trop * EKG with No St,T wave changes will repeat * cont home meds ASA, plavix , coreg increase to 25 BID * lipid profile , cholesterol # diabetic Borderline * border line , repeat A1c * ISS * BGM ACHS * diabetic diet , low na # Constipation * have daily BM but very hard , start Miralax 17 gm daily # HLD * resume home meds Lipitor 80 # FEN * no standing fluids * Monitor lytes * low NA diet # Proph * DVTS: SCDS , resume ASA , plavix * GI: PPi 20 Po daily # Dispo * tele obs # Full code Visit type - Emergency Visit Emergency Visit: Yes ED Registration Date: 01/18/19 Care time: The patient presented to the Emergency Department on the above date and was hospitalized for further evaluation of their emergent condition. - New Patient This patient is new to me today: Yes Date on this admission: 01/18/19 - Critical Care Critical Care patient: No
--- NOTE | 2019-01-18 19:56 | PN ---
Teaching Attending Note Name of Resident: Vikas Thibodeaux ATTENDING PHYSICIAN STATEMENT I saw and evaluated the patient. I reviewed the resident's note and discussed the case with the resident. I agree with the resident's findings and plan as documented. SUBJECTIVE: Patient is a 73 year old woman with a significant past medical history of STEMI and CAD (s/p 2 stents 01/2018), borderline DM, HTN, HLD, and nonadherence to her medication regimen who presents to the ED with complaint of intermittent lightheadedness and shortness of breath for 2 days with associated bilateral lower extremity swelling. She states she is not always compliant to her medication regimen. The patient denies chest pain, headache, fever, chills, nausea, vomit, diarrhea and constipation. The patient denies dysuria, frequency , urgency and hematuria. OBJECTIVE: Alert Vital Signs Period Temp Pulse Resp BP Sys/Pagan Pulse Ox Last 24 Hr 97.8 F-98.6 F 61-84 16-18 181-241/76-115 96-99 HEENT: No Jaundice, eye redness or discharge, PERRLA, EOMI. Normocephalic, atraumatic. External ears are normal and hearing is grossly intact. No nasal discharge. Neck: Supple, nontender. No palpable adenopathy or thyromegaly. No JVD Chest: Good effort. Clear to auscultation and percussion. Heart: Regular. No S3, rub or murmur Abdomen: Not distended, soft, nontender and no HSM. No rebound or guarding. Normal bowel sounds. Ext: Peripheral pulses intact. Leg edema. Skin: Warm and dry. No petechiae, rash or ecchymosis. Neuro: Alert. Oriented x3. CN 2-12 grossly intact. Sensation grossly intact in all four extremities and DTR are symmetric. Psych: Appropriate mood and affect. Good insight. Current Medications Generic Name Dose Route Start Last Admin Trade Name Freq PRN Reason Stop Dose Admin Aspirin 81 mg 01/19/19 10:00 Asa - PO DAILY [facility] Atorvastatin Calcium 80 mg 01/18/19 22:00 Lipitor - PO HS [facility] Carvedilol 12.5 mg 01/18/19 22:00 Coreg - PO BID [facility] Clopidogrel Bisulfate 75 mg 01/19/19 10:00 Plavix - PO DAILY [facility] Hydrochlorothiazide 25 mg 01/19/19 10:00 Hctz - PO DAILY [facility] Lisinopril 40 mg 01/19/19 10:00 Prinivil PO DAILY [facility] Home Medications Medication Instructions Recorded Aspirin [ASA -] 81 mg PO DAILY 09/16/18 Atorvastatin Ca [Lipitor] 80 mg PO HS 09/16/18 Carvedilol [Coreg -] 12.5 mg PO BID 09/16/18 Clopidogrel Bisulfate [Plavix] 75 mg PO DAILY 09/16/18 Hydrochlorothiazide [Hctz -] 25 mg PO DAILY 09/16/18 Lisinopril 40 mg PO DAILY 09/16/18 Abnormal Lab Results 01/18/19 01/18/19 16:13 16:13 Monocytes % 14.6 H Chloride 108 H Alkaline Phosphatase 141 H B-Natriuretic Peptide 805.3 H Albumin 2.9 L ASSESSMENT AND PLAN: 1. Hypertensive Urgency - Likely due to a suboptimal regimen and nonadherence. Getting bolus doses of IV labetalol in the ER. Will give one dose of lasix 40 mg IV. Will restart outpatient antihypertensive drugs and revise regimen to ensure smooth [id number] good BP control - Lisinopril 20 mg bid; Coreg 25 mg bid and HCTZ 12.5 mg qd. Nonpharmacologic measures to control hypertension like weight loss, salt restriction and exercise discussed. Importance of adherence to regimen stressed. CXR shows congestive changes and bibasilar atelectasis. EKG shows NSR, LVH and no significant ST-T wave changes. Admit to telemetry, get ECHO and fasting lipids. Get daily standing weight and restrict dietary salt intake. 2. Hypoalbuminemia - Possibly due to combined effects of malnutrition and inflammation associated with comorbid chronic conditions. Will ensure adequate dietary protein intake and also consult firmware architect. Rule out proteinuria. 3. Borderline DM Will check HbA1c and implement sliding scale insulin regimen. Provide comprehensive diabetes care with patient teaching and counseling about the importance of adherence to prescribed diabetes regimen, euglycemia, eye care and foot care. 4. Obesity Counseled on the risks associated with obesity. Will provide patient all the necessary assistance, counseling and positive reinforcement to facilitate weight loss. Consult firmware architect. 5. DVT prophylaxis - Lovenox 40 mg SQ q 24 hours. 6. Advance directives - Full code
[2019-01-18] MEDS ORDERED: LABETALOL HCL 5 MG/1 ML (200MG/40ML VIAL) IVPB ONE (20:21)
[2019-01-18] MEDS ORDERED: CARVEDILOL 12.5 MG TABLET (FP) PO ONE ×2 (20:23→20:34)
[2019-01-18] MEDS ORDERED: ALPRAZolam 0.25 MG TABLET PO ONE (20:24)
[2019-01-18] MEDS ORDERED: CARVEDILOL 12.5 MG TABLET (FP) ONE ×2 (20:25→20:41)
[2019-01-18] MEDS ORDERED: ALPRAZolam 0.25 MG TABLET ONE (20:25)
[2019-01-18] MEDS ORDERED: POLYETHYLENE GLYCOL 3350 119 GM BTL PO PRN (20:58)
[2019-01-18] MEDS ORDERED: INSULIN SLIDING SCALE (NOVOLOG) 1 VIAL SQ SCH (22:00)
[2019-01-18] MEDS ORDERED: CARVEDILOL 12.5 MG TABLET (FP) PO SCH (22:00)
[2019-01-18] MEDS ORDERED: ATORVASTATIN CA 80 MG TABLET (FP) PO SCH (22:00)
[2019-01-18] MEDS: CARVEDILOL 25 MG TABLET (FP) PO SCH (22:43)
[2019-01-18] MEDS ORDERED: ATORVASTATIN CA 10 MG TABLET (FP) ONE (22:50)
[2019-01-19 06:50] LABS: BASO % 1.4 % (0-2.0); EOS % 3.7 % (0-4.5); HEMATOCRIT 35.4 % (32.4-45.2); HEMOGLOBIN 11.7 GM/dL (10.7-15.3); LYMPH % 25.5 % (8-40); MCH 29.4 pg (25.7-33.7); MCHC 33.2 g/dl (32.0-36.0); MEAN CELL VOLUME 88.8 fl (80-96); MEAN PLT VOLUME 8.3 fl (7.5-11.1); MONO % 13.3 % (3.8-10.2); NEUT % 56.1 % (42.8-82.8); PLATELET COUNT 250 K/MM3 (134-434); RBC 3.98 M/mm3 (3.60-5.2); RDW 13.9 % (11.6-15.6); WHITE BLOOD COUNT 4.7 K/mm3 (4.0-10.0)
[2019-01-19 07:12] LABS: INR 1.01 (0.83-1.09); PROTHROMBIN TIME (PATIENT) 11.9 SEC (9.7-13.0)
[2019-01-19 07:15] LABS: ACTIVATED PTT 33.8 SECONDS (25.2-36.5)
[2019-01-19 07:18] LABS: CHOLESTEROL 181 mg/dL (50-200); HDL CHOLESTEROL 64 mg/dL (40-60); TRIGLYCERIDES 90 mg/dL (0-150)
[2019-01-19 07:20] LABS: ALBUMIN 2.7 g/dl (3.4-5.0); ALK PHOS 135 U/L (45-117); ANION GAP 5 MMOL/L (8-16); BILIRUBIN,TOTAL 0.9 mg/dL (0.2-1); BLOOD UREA NITROGEN 12 mg/dL (7-18); CALCIUM 8.9 mg/dL (8.5-10.1); CHLORIDE 106 mmol/L (98-107); CHOLESTEROL 171 mg/dL (50-200); CO2 28 mmol/L (21-32); CREATININE 0.8 mg/dL (0.55-1.3); GLUCOSE,RANDOM 98 mg/dL (74-106); MAGNESIUM 2.4 mg/dL (1.8-2.4); PHOSPHOROUS 4.2 mg/dL (2.5-4.9); POTASSIUM 3.7 mmol/L (3.5-5.1); SGOT/AST 15 U/L (15-37); SGPT/ALT 21 U/L (13-61); SODIUM 139 mmol/L (136-145); TOT PROT 6.2 g/dl (6.4-8.2)
[2019-01-19] MEDS ORDERED: PT OWN MED DRAWER 7, Y5N ONE (09:13)
[2019-01-19] MEDS: CARVEDILOL 25 MG TABLET (FP) PO SCH (09:14)
[2019-01-19 09:28] VITALS: TEMP 97.7
--- NOTE | 2019-01-19 09:30 | ECHO ---
Name: SAMY PATTERSON Exam:Adult Echocardiogram Study Date: 01/19/2019 07:40 AM Age: 73 yrs Reason For Study: LV Function Height: 64 in Weight: 180 lb BSA: 1.9 m2 MMode/2D Measurements & Calculations IVSd: 1.3 cm Ao root diam: 2.2 cm LVIDd: 4.1 cm LA dimension: 3.8 cm LVIDs: 2.7 cm LVPWd: 1.2 cm EDV(Teich): 72.8 ml LVOT diam: 2.0 cm ESV(Teich): 27.9 ml LAV (MOD-bp): 87.4 ml Doppler Measurements & Calculations MV E max justin: 114.0 cm/sec Ao V2 max: 211.7 cm/sec MV A max justin: 77.7 cm/sec Ao max P.9 mmHg MV E/A: 1.5 MV dec time: 0.15 sec WALKER(V,D): 1.2 cm2 LV V1 max P.9 mmHg MR max justin: 473.8 cm/sec LV V1 max: 84.9 cm/sec MR max P.8 mmHg TR max justin: 277.4 cm/sec PA V2 max: 130.3 cm/sec TR max P.8 mmHg PA max P.8 mmHg Med Peak E' Justin: 6.2 cm/sec PI Vmax: 116.7 cm/sec Med E/e': 18.4 Lat Peak E' Justin: 6.1 cm/sec Lat E/e': 18.7 Left Ventricle Left ventricular systolic function is normal. Ejection Fraction = 60-65%. The transmitral spectral Do ppler flow pattern is normal for age. Right Ventricle The right ventricle is normal in size and function. Atria The left atrium is mildly dilated. Mitral Valve There is mild mitral valve thickening. There is mild mitral annular calcification. There is no mitral valve stenosis. There is mild mitral regurgitation. Tricuspid Valve The tricuspid valve is normal in structure and function. There is mild tricuspid regurgitation. Aortic Valve There is mild aortic sclerosis.;. No hemodynamically significant valvular aortic stenosis. Mild aorti c regurgitation. Pulmonic Valve The pulmonic valve is not well seen, but is grossly normal. There is no pulmonic valvular stenosis. Great Vessels The aortic root is normal size. Pericardium/Pleura There is no pericardial effusion. Interpretation Summary Left ventricular systolic function is normal. Ejection Fraction = 60-65%. The left atrium is mildly dilated. There is mild mitral regurgitation. There is mild mitral annular calcification. There is mild tricuspid regurgitation. There is mild aortic sclerosis.; Mild aortic regurgitation. There is no pericardial effusion. MD Chatterjee *Phyllis 01/19/2019 09:30 AM
[2019-01-19] MEDS ORDERED: PANTOPRAZOLE 20 MG TABLET (FP) PO SCH (10:00)
[2019-01-19] MEDS ORDERED: ASPIRIN 81 MG CHEWABLE TABLETS PO SCH (10:00)
[2019-01-19] MEDS ORDERED: LISINOPRIL 20 MG TABLET (FP) PO SCH (10:00)
[2019-01-19] MEDS ORDERED: HYDROCHLOROTHIAZIDE 25 MG TABLET (FP) PO SCH (10:00)
[2019-01-19] MEDS ORDERED: CLOPIDOGREL BISULFATE 75 MG TABLET (FP) PO SCH (10:00)
[2019-01-19] MEDS ORDERED: LISINOPRIL 10 MG TABLET (FP) PO SCH (10:00)
[2019-01-19] MEDS ORDERED: HYDROCHLOROTHIAZIDE 12.5 MG CAPSULE (FP) PO SCH (10:00)
--- NOTE | 2019-01-19 10:33 | EKG ---
Test Reason : Blood Pressure : / mmHG Vent. Rate : 064 BPM Atrial Rate : 064 BPM P-R Int : 180 ms QRS Dur : 072 ms QT Int : 420 ms P-R-T Axes : 044 -07 013 degrees QTc Int : 433 ms NORMAL SINUS RHYTHM POSSIBLE LEFT ATRIAL ENLARGEMENT LEFT VENTRICULAR HYPERTROPHY ABNORMAL ECG WHEN COMPARED WITH ECG OF 16-SEP-2018 15:49, NO SIGNIFICANT CHANGE WAS FOUND Confirmed by ANA JUAREZ MD ([id number]) on 01/19/2019 10:33:24 AM Referred By: Confirmed By:ANA JUAREZ MD
[2019-01-19 11:37] VITALS: BP 200/94; PULSE 66
== END 2019-01-19 11:35 | disposition left against medical advice (07) ==
LOC: JER 15:24 → JERBED 18:54
PROVIDERS: ADMIT Internal Medicine
PROC: 3E033GC Introduction of Other Therapeutic Substance into Peripheral Vein, Percutaneous Approach (ICD-10-PCS; principal; 2019-01-18)
DX: I16.0 Hypertensive urgency (principal); R42 Dizziness and giddiness; R60.0 Localized edema; I10 Essential (primary) hypertension; E78.5 Hyperlipidemia, unspecified; I25.10 Atherosclerotic heart disease of native coronary artery without angina pectoris; I25.2 Old myocardial infarction; R73.03 Prediabetes; K59.00 Constipation, unspecified; E88.09 Other disorders of plasma-protein metabolism, not elsewhere classified; E66.9 Obesity, unspecified; Z68.30 Body mass index [BMI] 30.0-30.9, adult; Z95.5 Presence of coronary angioplasty implant and graft; Z79.82 Long term (current) use of aspirin; Z91.14 Patient's other noncompliance with medication regimen; Z88.2 Allergy status to sulfonamides
CPT/HCPCS: 36415; 71046-TC-FY; 80053; 80061; 81003; 82465; 82550; 82962; 83036; 83721; 83735; 83880; 84100; 84484; 85025; 85610; 85730; 87086; 93005; 93010; 93306-TC; 96374; 96376; 99283-25; G0378

== ENCOUNTER 2020-10-08 17:39 | Observation (INO) | payer OTHER ==
[2020-10-08 17:57] VITALS: BMI 29.2
[2020-10-08] MEDS ORDERED: FAMOTIDINE 20 MG/50 ML IVPB 20 MG/50 ML MG IVPB ONE ×2 (18:57→19:45)
[2020-10-08] MEDS ORDERED: ACETAMINOPHEN 1000 MG/100 ML VIAL (NON FORMULARY) IVPB ONE (18:57)
[2020-10-08] MEDS ORDERED: ACETAMINOPHEN INJECTION 100 ML IVPB ONE (19:45)
[2020-10-08 20:35] LABS: BASO % 0.9 % (0-2.0); EOS % 2.2 % (0-4.5); HEMATOCRIT 38.6 % (32.4-45.2); HEMOGLOBIN 12.6 GM/dL (10.7-15.3); LYMPH % 24.9 % (8-40); MCH 29.5 pg (25.7-33.7); MCHC 32.5 g/dl (32.0-36.0); MEAN CELL VOLUME 90.6 fl (80-96); MEAN PLT VOLUME 9.1 fl (7.5-11.1); MONO % 12.3 % (3.8-10.2); NEUT % 59.7 % (42.8-82.8); PLATELET COUNT 288 K/MM3 (134-434); RBC 4.26 M/mm3 (3.60-5.2); RDW 13.9 % (11.6-15.6); WHITE BLOOD COUNT 5.2 K/mm3 (4.0-10.0)
[2020-10-08 20:42] LABS: INR 0.97 (0.83-1.09); PROTHROMBIN TIME (PATIENT) 11.8 SEC (9.7-13.0)
[2020-10-08 20:50] LABS: PH,URINE 6.5 (5.0-8.0); URINE APPEARANCE CLEAR; URINE BILIRUBIN NEGATIVE (NEGATIVE); URINE COLOR YELLOW; URINE GLUCOSE (UA) NEGATIVE (NEGATIVE); URINE KETONE NEGATIVE (NEGATIVE); URINE LEUK ESTERASE NEGATIVE (NEGATIVE); URINE NITRITE NEGATIVE (NEGATIVE); URINE PROTEIN TRACE (NEGATIVE); URINE UROBILINOGEN 0.2 mg/dL (0.2-1.0)
[2020-10-08 20:53] LABS: CHLORIDE 108 mmol/L (98-107); POTASSIUM 3.9 mmol/L (3.5-5.1); SODIUM 144 mmol/L (136-145)
[2020-10-08 20:55] LABS: CALCIUM 8.7 mg/dL (8.5-10.1)
[2020-10-08 20:56] LABS: ALBUMIN 3.1 g/dl (3.4-5.0); ANION GAP 9 MMOL/L (8-16); CO2 27 mmol/L (21-32); GLUCOSE,RANDOM 86 mg/dL (74-106); MAGNESIUM 2.1 mg/dL (1.8-2.4)
[2020-10-08] MEDS ORDERED: METOPROLOL TARTRATE 5 MG/5 ML VIAL IVPUSH ONE (20:58)
[2020-10-08 20:59] LABS: CREATININE 0.7 mg/dL (0.55-1.3); SGOT/AST 18 U/L (15-37); SGPT/ALT 18 U/L (13-61)
[2020-10-08 21:00] LABS: BILIRUBIN,TOTAL 0.4 mg/dL (0.2-1)
[2020-10-08 21:01] LABS: ALK PHOS 116 U/L (45-117)
[2020-10-08] MEDS ORDERED: METOPROLOL TARTRATE 5 MG/5 ML VIAL ONE (21:22)
[2020-10-08] MEDS ORDERED: ENALAPRILAT DIHYDRATE 1.25 MG/1 ML VIAL IVPB ONE (22:48)
[2020-10-08] MEDS ORDERED: ENALAPRILAT DIHYDRATE 2.5 MG/2 ML VIAL IVPB ONE (22:58)
[2020-10-09] MEDS ORDERED: CARVEDILOL 3.125 MG TABLET (FP) PO ONE (03:52)
[2020-10-09] MEDS ORDERED: CARVEDILOL 3.125 MG TABLET (FP) ONE (04:39)
[2020-10-09 07:54] LABS: CHLORIDE 108 mmol/L (98-107); POTASSIUM 3.9 mmol/L (3.5-5.1); SODIUM 143 mmol/L (136-145)
[2020-10-09 07:57] LABS: CALCIUM 8.6 mg/dL (8.5-10.1)
[2020-10-09 07:58] LABS: ANION GAP 7 MMOL/L (8-16); CO2 28 mmol/L (21-32); GLUCOSE,RANDOM 92 mg/dL (74-106)
[2020-10-09 07:59] LABS: HEMATOCRIT 34.7 % (32.4-45.2); HEMOGLOBIN 11.4 GM/dL (10.7-15.3); MCH 29.5 pg (25.7-33.7); MCHC 32.9 g/dl (32.0-36.0); MEAN CELL VOLUME 89.9 fl (80-96); MEAN PLT VOLUME 8.8 fl (7.5-11.1); PLATELET COUNT 261 K/MM3 (134-434); RBC 3.86 M/mm3 (3.60-5.2); RDW 13.9 % (11.6-15.6); WHITE BLOOD COUNT 4.7 K/mm3 (4.0-10.0)
[2020-10-09 08:01] LABS: CREATININE 0.7 mg/dL (0.55-1.3)
[2020-10-09] MEDS: INSULIN SLIDING SCALE (NOVOLOG) 1 VIAL SQ SCH ×2 (08:28→11:17)
[2020-10-09] MEDS ORDERED: CARVEDILOL 12.5 MG TABLET (FP) ONE (09:27)
[2020-10-09] MEDS ORDERED: ASPIRIN 81 MG CHEWABLE TABLETS ONE (09:27)
[2020-10-09] MEDS ORDERED: LISINOPRIL 20 MG TABLET ONE (09:27)
[2020-10-09] MEDS ORDERED: CLOPIDOGREL BISULFATE 75 MG TABLET (FP) ONE (09:28)
[2020-10-09] MEDS ORDERED: PANTOPRAZOLE SODIUM 40 MG VIAL ONE (09:28)
[2020-10-09] MEDS ORDERED: CARVEDILOL 12.5 MG TABLET (FP) PO SCH (10:00)
[2020-10-09] MEDS ORDERED: PANTOPRAZOLE 40 MG TABLET PO SCH (10:00)
[2020-10-09] MEDS ORDERED: ASPIRIN 81 MG CHEWABLE TABLETS PO SCH (10:00)
[2020-10-09] MEDS ORDERED: LISINOPRIL 20 MG TABLET PO SCH (10:00)
[2020-10-09] MEDS ORDERED: CLOPIDOGREL BISULFATE 75 MG TABLET (FP) PO SCH (10:00)
[2020-10-09 12:41] VITALS: BP 156/70; PULSE 55; TEMP 98
== END 2020-10-09 18:11 | disposition home or self-care (01) ==
LOC: JER 17:39 → JERBED 10-09 03:27
PROVIDERS: ADMIT Hospitalist; ATTEND Internal Medicine
PROC: 3E033GC Introduction of Other Therapeutic Substance into Peripheral Vein, Percutaneous Approach (ICD-10-PCS; principal; 2020-10-09)
DX: I25.10 Atherosclerotic heart disease of native coronary artery without angina pectoris (principal); Z95.5 Presence of coronary angioplasty implant and graft; Z91.14 Patient's other noncompliance with medication regimen; I16.0 Hypertensive urgency; Z88.2 Allergy status to sulfonamides; R73.03 Prediabetes; K30 Functional dyspepsia; E78.5 Hyperlipidemia, unspecified; Z20.828 Contact with and (suspected) exposure to other viral communicable diseases; Z23 Encounter for immunization
CPT/HCPCS: 36415; 71045-TC-FY; 74177-TC; 80048; 80053; 81003; 82272; 82550; 82962; 83036; 83735; 84484; 85025; 85027; 85610; 87086; 93005; 93010; 93306-TC; 96365; 96375; 99291; 99292; C9803; G0378; Q9967; U0003

== ENCOUNTER 2020-11-19 21:41 | Emergency (ER) | payer OTHER ==
[2020-11-19 22:05] VITALS: TEMP 97.7
[2020-11-20] MEDS ORDERED: amLODIPine BESYLATE 5 MG TABLET (FP) PO ONE (00:03)
[2020-11-20] MEDS ORDERED: amLODIPine BESYLATE 5 MG TABLET (FP) ONE (00:06)
[2020-11-20 00:46] LABS: BASO % 1.2 % (0-2.0); EOS % 2.2 % (0-4.5); HEMATOCRIT 38.9 % (32.4-45.2); HEMOGLOBIN 12.8 GM/dL (10.7-15.3); LYMPH % 28.6 % (8-40); MCH 29.6 pg (25.7-33.7); MCHC 32.9 g/dl (32.0-36.0); MEAN CELL VOLUME 89.9 fl (80-96); MEAN PLT VOLUME 8.9 fl (7.5-11.1); MONO % 11.8 % (3.8-10.2); NEUT % 56.2 % (42.8-82.8); PLATELET COUNT 278 K/MM3 (134-434); RBC 4.33 M/mm3 (3.60-5.2); RDW 13.6 % (11.6-15.6); WHITE BLOOD COUNT 4.8 K/mm3 (4.0-10.0)
[2020-11-20 01:07] LABS: CHLORIDE 109 mmol/L (98-107); POTASSIUM 4.7 mmol/L (3.5-5.1); SODIUM 143 mmol/L (136-145)
[2020-11-20 01:09] LABS: CALCIUM 8.9 mg/dL (8.5-10.1)
[2020-11-20 01:10] LABS: ALBUMIN 3.2 g/dl (3.4-5.0); ANION GAP 4 MMOL/L (8-16); BLOOD UREA NITROGEN 13.6 mg/dL (7-18); CO2 29 mmol/L (21-32); GLUCOSE,RANDOM 105 mg/dL (74-106); MAGNESIUM 2.2 mg/dL (1.8-2.4)
[2020-11-20 01:13] LABS: CREATININE 0.8 mg/dL (0.55-1.3); SGOT/AST 20 U/L (15-37); SGPT/ALT 21 U/L (13-61)
[2020-11-20 01:15] LABS: BILIRUBIN,TOTAL 0.4 mg/dL (0.2-1); TOT PROT 7.4 g/dl (6.4-8.2)
[2020-11-20 01:16] LABS: ALK PHOS 124 U/L (45-117)
[2020-11-20 01:29] LABS: INR 0.97 (0.83-1.09); PROTHROMBIN TIME (PATIENT) 11.7 SEC (9.7-13.0)
[2020-11-20 01:31] LABS: ACTIVATED PTT 27.4 SECONDS (25.2-36.5)
[2020-11-20] MEDS ORDERED: ENALAPRILAT DIHYDRATE 1.25 MG/1 ML VIAL IVPB ONE (02:48)
[2020-11-20] MEDS ORDERED: ENALAPRILAT DIHYDRATE 2.5 MG/2 ML VIAL IVPB ONE (03:10)
[2020-11-20 03:59] VITALS: BP 185/69; PULSE 62
== END 2020-11-20 04:31 | disposition home or self-care (01) ==
LOC: JER 21:41
PROC: 3E033NZ Introduction of Analgesics, Hypnotics, Sedatives into Peripheral Vein, Percutaneous Approach (ICD-10-PCS; principal; 2020-11-20)
DX: I10 Essential (primary) hypertension (principal)
CPT/HCPCS: 36415; 71046-TC-FY; 80053; 82550; 83735; 84443; 84484; 85025; 85610; 85730; 93005; 93010; 99285-25

== ENCOUNTER 2020-12-09 05:51 | Inpatient (IN) | payer OTHER ==
[2020-12-09 06:26] VITALS: BMI 29.8
[2020-12-09 07:26] LABS: INR 0.94 (0.83-1.09); PROTHROMBIN TIME (PATIENT) 11.4 SEC (9.7-13.0)
[2020-12-09 07:29] LABS: ACTIVATED PTT 29.1 SECONDS (25.2-36.5)
[2020-12-09 07:40] LABS: CHLORIDE 104 mmol/L (98-107); POTASSIUM 3.8 mmol/L (3.5-5.1); SODIUM 139 mmol/L (136-145)
[2020-12-09 07:42] LABS: ALBUMIN 2.9 g/dl (3.4-5.0); ANION GAP 6 MMOL/L (8-16); BLOOD UREA NITROGEN 18.1 mg/dL (7-18); CALCIUM 8.8 mg/dL (8.5-10.1); CO2 29 mmol/L (21-32); GLUCOSE,RANDOM 113 mg/dL (74-106)
[2020-12-09 07:45] LABS: SGPT/ALT 21 U/L (13-61)
[2020-12-09 07:46] LABS: SGOT/AST 23 U/L (15-37)
[2020-12-09 07:47] LABS: BILIRUBIN,TOTAL 0.3 mg/dL (0.2-1)
[2020-12-09 07:48] LABS: ALK PHOS 136 U/L (45-117)
[2020-12-09 07:50] LABS: N-TERMINAL BNP 345.9 pg/ml (5-450)
[2020-12-09] MEDS ORDERED: LABETALOL HCL 5 MG/1 ML (100MG/20 ML VIAL) IVPUSH ONE (08:51)
[2020-12-09] MEDS ORDERED: LABETALOL HCL 5 MG/1 ML (100MG/20 ML VIAL) IVPUSH STA (08:52)
[2020-12-09 09:52] LABS: HEMATOCRIT 37.1 % (32.4-45.2); HEMOGLOBIN 12.3 GM/dL (10.7-15.3); MCH 29.9 pg (25.7-33.7); MCHC 33.3 g/dl (32.0-36.0); MEAN CELL VOLUME 89.9 fl (80-96); MEAN PLT VOLUME 8.4 fl (7.5-11.1); PLATELET COUNT 281 K/MM3 (134-434); RBC 4.12 M/mm3 (3.60-5.2); RDW 13.6 % (11.6-15.6); WHITE BLOOD COUNT 4.7 K/mm3 (4.0-10.0)
[2020-12-09] MEDS ORDERED: ASPIRIN 81 MG CHEWABLE TABLETS ONE (11:22)
[2020-12-09] MEDS ORDERED: LISINOPRIL 20 MG TABLET ONE (11:23)
[2020-12-09] MEDS ORDERED: CLOPIDOGREL BISULFATE 75 MG TABLET (FP) ONE (11:23)
[2020-12-09] MEDS ORDERED: CARVEDILOL 3.125 MG TABLET (FP) ONE (11:29)
[2020-12-09] MEDS ORDERED: HYDROCHLOROTHIAZIDE 25 MG TABLET (FP) ONE (11:30)
[2020-12-09] MEDS: ASPIRIN 81 MG CHEWABLE TABLETS PO SCH ×2 (11:45→11:47)
[2020-12-09] MEDS: CARVEDILOL 6.25 MG TABLET (FP) PO SCH ×2 (11:45→21:17)
[2020-12-09] MEDS: HYDROCHLOROTHIAZIDE 25 MG TABLET (FP) PO SCH (11:46)
[2020-12-09] MEDS: CLOPIDOGREL BISULFATE 75 MG TABLET (FP) PO SCH ×2 (11:46)
[2020-12-09] MEDS: LISINOPRIL 20 MG TABLET PO SCH (11:47)
[2020-12-09] MEDS: PANTOPRAZOLE 40 MG TABLET PO SCH (11:47)
[2020-12-09 16:06] LABS: URINE APPEARANCE CLEAR; URINE BILIRUBIN NEGATIVE (NEGATIVE); URINE COLOR YELLOW; URINE GLUCOSE (UA) NEGATIVE (NEGATIVE); URINE KETONE NEGATIVE (NEGATIVE); URINE LEUK ESTERASE NEGATIVE (NEGATIVE); URINE NITRITE NEGATIVE (NEGATIVE); URINE PROTEIN NEGATIVE (NEGATIVE); URINE UROBILINOGEN 0.2 mg/dL (0.2-1.0)
[2020-12-09] MEDS ORDERED: ACETAMINOPHEN 325 MG TABLET (FP) PO PRN (21:06)
[2020-12-09] MEDS ORDERED: ACETAMINOPHEN 325 MG TABLET (FP) PO ONE (21:06)
[2020-12-09] MEDS: ATORVASTATIN CA 80 MG TABLET (FP) PO SCH (21:17)
[2020-12-10 09:25] LABS: BASO % 0.9 % (0-2.0); EOS % 2.2 % (0-4.5); HEMATOCRIT 35.8 % (32.4-45.2); HEMOGLOBIN 11.9 GM/dL (10.7-15.3); LYMPH % 28.5 % (8-40); MCH 29.8 pg (25.7-33.7); MCHC 33.3 g/dl (32.0-36.0); MEAN CELL VOLUME 89.6 fl (80-96); MEAN PLT VOLUME 8.6 fl (7.5-11.1); MONO % 16.4 % (3.8-10.2); PLATELET COUNT 286 K/MM3 (134-434); RDW 13.6 % (11.6-15.6); WHITE BLOOD COUNT 4.1 K/mm3 (4.0-10.0)
[2020-12-10] MEDS ORDERED: CARVEDILOL 3.125 MG TABLET (FP) PO SCH (09:25)
[2020-12-10 09:51] LABS: POTASSIUM 3.8 mmol/L (3.5-5.1)
[2020-12-10] MEDS: HYDROCHLOROTHIAZIDE 25 MG TABLET (FP) PO SCH (10:08)
[2020-12-10] MEDS: LISINOPRIL 20 MG TABLET PO SCH (10:09)
[2020-12-10] MEDS: PANTOPRAZOLE 40 MG TABLET PO SCH (10:09)
[2020-12-10] MEDS: ASPIRIN 81 MG CHEWABLE TABLETS PO SCH (10:10)
[2020-12-10] MEDS: CLOPIDOGREL BISULFATE 75 MG TABLET (FP) PO SCH (10:11)
[2020-12-10 10:17] LABS: ALBUMIN 2.6 g/dl (3.4-5.0)
[2020-12-10 10:18] LABS: CREATININE 0.9 mg/dL (0.55-1.3); MAGNESIUM 2.1 mg/dL (1.8-2.4)
[2020-12-10 10:19] LABS: TOT PROT 6.4 g/dl (6.4-8.2)
[2020-12-10 10:21] LABS: BLOOD UREA NITROGEN 14.2 mg/dL (7-18)
[2020-12-10 10:24] LABS: PHOSPHOROUS 4.4 mg/dL (2.5-4.9)
[2020-12-10] MEDS: metoPROLOL SUCCINATE 25 MG TAB.SR.24H (FP) PO SCH (13:13)
[2020-12-10] MEDS ORDERED: LISINOPRIL 20 MG TABLET PO ONE (13:30)
[2020-12-10] MEDS ORDERED: HYDROCHLOROTHIAZIDE 25 MG TABLET (FP) PO ONE (20:51)
[2020-12-10] MEDS: ATORVASTATIN CA 80 MG TABLET (FP) PO SCH (22:12)
[2020-12-10] MEDS ORDERED: ACETAMINOPHEN 325 MG TABLET (FP) PO ONE (22:38)
[2020-12-11] MEDS: ASPIRIN 81 MG CHEWABLE TABLETS PO SCH (09:14)
[2020-12-11] MEDS: CLOPIDOGREL BISULFATE 75 MG TABLET (FP) PO SCH (09:14)
[2020-12-11] MEDS: HYDROCHLOROTHIAZIDE 25 MG TABLET (FP) PO SCH (09:14)
[2020-12-11] MEDS: PANTOPRAZOLE 40 MG TABLET PO SCH (09:14)
[2020-12-11] MEDS: metoPROLOL SUCCINATE 25 MG TAB.SR.24H (FP) PO SCH (09:14)
[2020-12-11] MEDS ORDERED: LISINOPRIL 20 MG TABLET PO SCH (10:00)
[2020-12-11] MEDS ORDERED: REGADENOSON 0.4 MG/5 ML PRE-FILLED SYRINGE IVPUSH ONE ×2 (10:08→10:45)
[2020-12-11 14:59] VITALS: BP 150/78; PULSE 60; TEMP 98
== END 2020-12-11 16:55 | disposition home or self-care (01) | DRG 305 ==
LOC: JER 05:51 → JERBED 08:41 → OBSVTOIN 09:06 → J4W 16:13
PROVIDERS: ADMIT Internal Medicine; ATTEND Student in an Organized Health Care Education/Training Program
DX: I16.0 Hypertensive urgency (principal); E78.5 Hyperlipidemia, unspecified; I25.10 Atherosclerotic heart disease of native coronary artery without angina pectoris; Z95.5 Presence of coronary angioplasty implant and graft; R73.03 Prediabetes
CPT/HCPCS: 36415; 71045-TC-FY; 78452-TC; 80053; 80061; 81003; 82962; 83721; 83735; 83880; 84100; 84484; 85025; 85027; 85610; 85730; 87081; 93005; 93010; 93017; 99285-25; A9502; C9803; G0378; J2785; U0003

== ENCOUNTER 2022-05-28 13:59 | Emergency (ER) | payer OTHER ==
[2022-05-28 14:07] VITALS: TEMP 98.3; BMI 26.6
[2022-05-28 16:46] LABS: BASO % 1.1 % (0-2.0); EOS % 2.1 % (0-4.5); MCH 29.5 pg (25.7-33.7); MCHC 33.2 g/dl (32.0-36.0); MEAN CELL VOLUME 88.7 fl (80-96); MEAN PLT VOLUME 8.3 fl (7.5-11.1); MONO % 11.8 % (3.8-10.2); PLATELET COUNT 266 10^3/uL (134-434); RBC 4.06 M/mm3 (3.60-5.2); RDW 14.4 % (11.6-15.6); WHITE BLOOD COUNT 5.1 K/mm3 (4.0-10.0)
[2022-05-28 16:54] LABS: EPI CELLS 24 /uL (0-25.1); HYALINE CASTS 0 /uL (0-3.1); PH,URINE 6.5 (5.0-8.0); URINE APPEARANCE CLEAR; URINE BACTERIA 158 /uL (0-1359); URINE BILIRUBIN NEGATIVE (NEGATIVE); URINE COLOR YELLOW; URINE GLUCOSE (UA) NEGATIVE (NEGATIVE); URINE KETONE NEGATIVE (NEGATIVE); URINE LEUK ESTERASE 1+ (NEGATIVE); URINE NITRITE NEGATIVE (NEGATIVE); URINE PROTEIN NEGATIVE (NEGATIVE); URINE RBC 6 /uL (0-23.9); URINE UROBILINOGEN 0.2 mg/dL (0.2-1.0); URINE WBC 23 /uL (0-25.8)
[2022-05-28 16:57] LABS: INR 0.97 (0.83-1.09); PROTHROMBIN TIME (PATIENT) 11.2 SEC (9.7-13.0)
[2022-05-28 16:59] LABS: ACTIVATED PTT 30.7 SECONDS (25.2-36.5)
[2022-05-28 17:06] LABS: CALCIUM 9.1 mg/dL (8.5-10.1)
[2022-05-28 17:07] LABS: ALBUMIN 2.9 g/dl (3.4-5.0)
[2022-05-28 17:09] LABS: CREATININE 0.7 mg/dL (0.55-1.3)
[2022-05-28 17:11] LABS: BILIRUBIN,TOTAL 0.4 mg/dL (0.2-1); TOT PROT 6.8 g/dl (6.4-8.2)
[2022-05-28 18:46] VITALS: BP 215/103; PULSE 74; RESP 18
== END 2022-05-28 19:02 | disposition left against medical advice (07) ==
LOC: JER 13:59
DX: R29.6 Repeated falls (principal)
CPT/HCPCS: 36415; 70450-TC; 80053; 81003; 85025; 85610; 85730; 87077; 87086; 93005; 93010; 99284-25

== ENCOUNTER 2022-07-12 15:37 | Inpatient (IN) | payer OTHER ==
[2022-07-12 15:52] VITALS: BMI 30.9
[2022-07-12 17:47] LABS: BASO % 1.2 % (0-2.0); EOS % 2.4 % (0-4.5); HEMATOCRIT 36.2 % (32.4-45.2); HEMOGLOBIN 11.6 GM/dL (10.7-15.3); LYMPH % 32.3 % (8-40); MCH 28.9 pg (25.7-33.7); MCHC 32.1 g/dl (32.0-36.0); MEAN CELL VOLUME 90.1 fl (80-96); MEAN PLT VOLUME 8.7 fl (7.5-11.1); MONO % 12.1 % (3.8-10.2); PLATELET COUNT 289 10^3/uL (134-434); RBC 4.02 M/mm3 (3.60-5.2); RDW 13.9 % (11.6-15.6); WHITE BLOOD COUNT 4.4 K/mm3 (4.0-10.0)
[2022-07-12 17:54] LABS: INR 1.03 (0.83-1.09); PROTHROMBIN TIME (PATIENT) 11.8 SEC (9.7-13.0)
[2022-07-12 17:56] LABS: ACTIVATED PTT 31.3 SECONDS (25.2-36.5)
[2022-07-12 18:07] LABS: CALCIUM 8.9 mg/dL (8.5-10.1)
[2022-07-12 18:08] LABS: ALBUMIN 2.7 g/dl (3.4-5.0); BLOOD UREA NITROGEN 14.7 mg/dL (7-18); MAGNESIUM 1.9 mg/dL (1.8-2.4)
[2022-07-12 18:11] LABS: CREATININE 0.7 mg/dL (0.55-1.3)
[2022-07-12 18:13] LABS: BILIRUBIN,TOTAL 0.6 mg/dL (0.2-1); TOT PROT 6.7 g/dl (6.4-8.2)
[2022-07-12 18:16] LABS: N-TERMINAL BNP 576.4 pg/ml (5-450)
[2022-07-12 19:55] LABS: PH,URINE 5.5 (5.0-8.0); URINE APPEARANCE CLEAR; URINE BILIRUBIN NEGATIVE (NEGATIVE); URINE COLOR YELLOW; URINE GLUCOSE (UA) NEGATIVE (NEGATIVE); URINE KETONE NEGATIVE (NEGATIVE); URINE LEUK ESTERASE NEGATIVE (NEGATIVE); URINE NITRITE NEGATIVE (NEGATIVE); URINE PROTEIN NEGATIVE (NEGATIVE); URINE UROBILINOGEN 0.2 mg/dL (0.2-1.0)
[2022-07-12] MEDS ORDERED: PIPERACILLIN/TAZOB 4.5 GM 4.5 GM in DEXTROSE 5%-WATER 100 ML IVPB ONE (20:53)
[2022-07-12] MEDS ORDERED: PIPERACILLIN/TAZOB 4.5 GM 4.5 GM/100 ML BAG IVPB ONE (21:37)
[2022-07-12] MEDS ORDERED: FUROSEMIDE 40 MG/4 ML INJECTABLE VIAL IVPUSH ONE (23:31)
[2022-07-12] MEDS ORDERED: CARVEDILOL 6.25 MG TABLET (FP) PO ONE (23:54)
[2022-07-13] MEDS ORDERED: FUROSEMIDE 40 MG/4 ML INJECTABLE VIAL ONE ×2 (00:16→09:11)
[2022-07-13] MEDS ORDERED: CARVEDILOL 6.25 MG TABLET (FP) ONE ×2 (00:16→09:11)
[2022-07-13] MEDS ORDERED: RAPID SEQUENCE INTUBATION KIT NR ONE (03:08)
[2022-07-13 06:42] LABS: HEMATOCRIT 38.8 % (32.4-45.2); HEMOGLOBIN 12.9 GM/dL (10.7-15.3); MCH 29.5 pg (25.7-33.7); MCHC 33.1 g/dl (32.0-36.0); MEAN CELL VOLUME 89.1 fl (80-96); MEAN PLT VOLUME 8.5 fl (7.5-11.1); PLATELET COUNT 332 10^3/uL (134-434); RBC 4.35 M/mm3 (3.60-5.2); RDW 13.5 % (11.6-15.6); WHITE BLOOD COUNT 6.3 K/mm3 (4.0-10.0)
[2022-07-13 06:58] LABS: CALCIUM 9.1 mg/dL (8.5-10.1)
[2022-07-13 06:59] LABS: ALBUMIN 3.2 g/dl (3.4-5.0)
[2022-07-13 07:02] LABS: CREATININE 0.9 mg/dL (0.55-1.3)
[2022-07-13 07:03] LABS: BILIRUBIN,TOTAL 0.9 mg/dL (0.2-1)
[2022-07-13 07:04] LABS: TOT PROT 7.5 g/dl (6.4-8.2)
[2022-07-13] MEDS ORDERED: SODIUM CHLORIDE 250 ML IV STA (07:41)
[2022-07-13] MEDS ORDERED: POTASSIUM CHLORIDE ORAL LIQUID 20 MEQ/15 ML PO ONE ×2 (07:41→08:33)
[2022-07-13] MEDS ORDERED: KCL 10 MEQ IVPB 10 MEQ/100 ML INFUS.BAG IVPB ONE (08:37)
[2022-07-13] MEDS ORDERED: POTASSIUM CHLORIDE ORAL LIQUID 20 MEQ/15 ML ONE (08:37)
[2022-07-13] MEDS: KCL 10 MEQ IVPB 10 MEQ/100 ML INFUS.BAG IVPB SCH ×6 (09:00→19:34)
[2022-07-13] MEDS ORDERED: ASPIRIN 81 MG CHEWABLE TABLETS ONE (09:11)
[2022-07-13] MEDS ORDERED: LISINOPRIL 20 MG TABLET ONE (09:11)
[2022-07-13] MEDS ORDERED: ENOXAPARIN NA (PORCINE) 40 MG/0.4 ML DISP.SYRIN SQ ONE (09:11)
[2022-07-13] MEDS: CARVEDILOL 6.25 MG TABLET (FP) PO SCH ×2 (09:29→22:40)
[2022-07-13] MEDS: FUROSEMIDE 40 MG/4 ML INJECTABLE VIAL IVPUSH SCH ×2 (09:29→22:40)
[2022-07-13] MEDS: ASPIRIN 81 MG CHEWABLE TABLETS PO SCH (09:29)
[2022-07-13] MEDS: LISINOPRIL 20 MG TABLET PO SCH (09:30)
[2022-07-13] MEDS: ENOXAPARIN NA (PORCINE) 40 MG/0.4 ML DISP.SYRIN SQ SCH (09:30)
[2022-07-13] MEDS ORDERED: LABETALOL HCL 5 MG/1 ML (100MG/20 ML VIAL) IVPUSH PRN (09:55)
[2022-07-13] MEDS ORDERED: HYDROCHLOROTHIAZIDE 25 MG TABLET (FP) PO SCH (10:00)
[2022-07-13] MEDS ORDERED: FUROSEMIDE 40 MG/4 ML INJECTABLE VIAL IVPUSH SCH (10:00)
[2022-07-13] MEDS ORDERED: CLOPIDOGREL BISULFATE 75 MG TABLET (FP) PO SCH (10:00)
[2022-07-13] MEDS ORDERED: PANTOPRAZOLE 40 MG TABLET PO SCH (10:00)
[2022-07-13] MEDS ORDERED: metoPROLOL SUCCINATE 25 MG TAB.SR.24H (FP) PO SCH (10:00)
[2022-07-13] MEDS ORDERED: LABETALOL HCL 5 MG/1 ML (100MG/20 ML VIAL) IVPB PRN (17:14)
[2022-07-13] MEDS ORDERED: ATORVASTATIN CA 80 MG TABLET (FP) PO SCH (22:00)
[2022-07-13] MEDS: ATORVASTATIN CA 40 MG TABLET (FP) PO SCH (22:40)
[2022-07-14 10:05] LABS: HEMATOCRIT 38.5 % (32.4-45.2); HEMOGLOBIN 12.8 GM/dL (10.7-15.3); MCH 29.6 pg (25.7-33.7); MCHC 33.4 g/dl (32.0-36.0); MEAN CELL VOLUME 88.7 fl (80-96); MEAN PLT VOLUME 8.4 fl (7.5-11.1); PLATELET COUNT 324 10^3/uL (134-434); RBC 4.34 M/mm3 (3.60-5.2); RDW 13.6 % (11.6-15.6); WHITE BLOOD COUNT 4.3 K/mm3 (4.0-10.0)
[2022-07-14 10:30] LABS: CALCIUM 9.6 mg/dL (8.5-10.1)
[2022-07-14 10:31] LABS: BLOOD UREA NITROGEN 16.8 mg/dL (7-18)
[2022-07-14 10:34] LABS: CREATININE 0.9 mg/dL (0.55-1.3); PHOSPHOROUS 3.8 mg/dL (2.5-4.9)
[2022-07-14] MEDS: TORSEMIDE 20 MG TABLET (FP) PO SCH (11:57)
[2022-07-14] MEDS: LISINOPRIL 20 MG TABLET PO SCH (11:58)
[2022-07-14] MEDS: NIFEdipine E.R. 30 MG TABLET PO SCH (11:58)
[2022-07-14] MEDS: ASPIRIN 81 MG CHEWABLE TABLETS PO SCH (11:58)
[2022-07-14] MEDS: ENOXAPARIN NA (PORCINE) 40 MG/0.4 ML DISP.SYRIN SQ SCH (11:58)
[2022-07-14] MEDS: CARVEDILOL 12.5 MG TABLET (FP) PO SCH ×2 (11:58→21:31)
[2022-07-14] MEDS: POTASSIUM CHLORIDE ORAL LIQUID 20 MEQ/15 ML PO SCH (11:58)
[2022-07-14] MEDS: ATORVASTATIN CA 40 MG TABLET (FP) PO SCH (21:31)
[2022-07-15] MEDS: ENOXAPARIN NA (PORCINE) 40 MG/0.4 ML DISP.SYRIN SQ SCH ×2 (10:33→11:43)
[2022-07-15] MEDS: POTASSIUM CHLORIDE ORAL LIQUID 20 MEQ/15 ML PO SCH (10:33)
[2022-07-15] MEDS: ASPIRIN 81 MG CHEWABLE TABLETS PO SCH (10:34)
[2022-07-15] MEDS: TORSEMIDE 20 MG TABLET (FP) PO SCH (10:34)
[2022-07-15] MEDS: NIFEdipine E.R. 30 MG TABLET PO SCH (10:34)
[2022-07-15] MEDS: CARVEDILOL 12.5 MG TABLET (FP) PO SCH (10:34)
[2022-07-15] MEDS: LISINOPRIL 20 MG TABLET PO SCH (10:34)
[2022-07-15 11:28] LABS: HEMATOCRIT 37.8 % (32.4-45.2); HEMOGLOBIN 12.6 GM/dL (10.7-15.3); MCH 29.8 pg (25.7-33.7); MCHC 33.4 g/dl (32.0-36.0); MEAN CELL VOLUME 89.2 fl (80-96); MEAN PLT VOLUME 8.4 fl (7.5-11.1); PLATELET COUNT 298 10^3/uL (134-434); RBC 4.23 M/mm3 (3.60-5.2); RDW 13.8 % (11.6-15.6); WHITE BLOOD COUNT 5.2 K/mm3 (4.0-10.0)
[2022-07-15 12:08] LABS: CALCIUM 9.9 mg/dL (8.5-10.1)
[2022-07-15 12:09] LABS: MAGNESIUM 1.8 mg/dL (1.8-2.4)
[2022-07-15 12:10] LABS: BLOOD UREA NITROGEN 27.6 mg/dL (7-18)
[2022-07-15 12:11] LABS: PHOSPHOROUS 4.3 mg/dL (2.5-4.9)
[2022-07-15 12:13] LABS: CREATININE 1.3 mg/dL (0.55-1.3)
[2022-07-15 15:58] VITALS: RESP 18; TEMP 98.2
[2022-07-15 16:25] VITALS: BP 123/71; PULSE 70
== END 2022-07-15 16:55 | disposition home or self-care (01) | DRG 291 ==
LOC: JER 15:37 → JERBED 21:21 → J5S 07-13 11:08
PROVIDERS: ADMIT Internal Medicine; ATTEND Internal Medicine
DX: I11.0 Hypertensive heart disease with heart failure (principal); I50.31 Acute diastolic (congestive) heart failure; I16.9 Hypertensive crisis, unspecified; I70.0 Atherosclerosis of aorta; I35.0 Nonrheumatic aortic (valve) stenosis; K21.9 Gastro-esophageal reflux disease without esophagitis; E78.5 Hyperlipidemia, unspecified; I25.10 Atherosclerotic heart disease of native coronary artery without angina pectoris; R06.09 Other forms of dyspnea; R73.03 Prediabetes; Z98.61 Coronary angioplasty status; E87.6 Hypokalemia; E87.70 Fluid overload, unspecified
CPT/HCPCS: 0241U-QW; 36415; 70450-TC; 71045-TC-FY; 80048; 80053; 81003; 82962; 83036; 83735; 83880; 84100; 84443; 84484; 85025; 85027; 85610; 85730; 87086; 93005; 93010; 93306-TC; 93971-TC; 97116-GP; 97161-GP; 99285-25

== ENCOUNTER 2022-11-12 23:03 | Emergency (ER) | payer OTHER ==
[2022-11-12 23:08] VITALS: BP 165/79; PULSE 66; RESP 18; TEMP 97.2; BMI 31.8
[2022-11-13 01:40] LABS: BASO % 0.9 % (0-2.0); EOS % 1.9 % (0-4.5); HEMATOCRIT 40.9 % (32.4-45.2); HEMOGLOBIN 13.6 GM/dL (10.7-15.3); LYMPH % 22.1 % (8-40); MCH 29.7 pg (25.7-33.7); MCHC 33.2 g/dl (32.0-36.0); MEAN CELL VOLUME 89.6 fl (80-96); MONO % 7.3 % (3.8-10.2); NEUT % 67.8 % (42.8-82.8); PLATELET COUNT 412 10^3/uL (134-434); RBC 4.57 M/mm3 (3.60-5.2); RDW 14.5 % (11.6-15.6); WHITE BLOOD COUNT 5.8 K/mm3 (4.0-10.0)
[2022-11-13 02:01] LABS: ALBUMIN 3.4 g/dl (3.4-5.0); BLOOD UREA NITROGEN 11.4 mg/dL (7-18)
[2022-11-13 02:04] LABS: CREATININE 0.8 mg/dL (0.55-1.3)
[2022-11-13 02:05] LABS: BILIRUBIN,TOTAL 0.7 mg/dL (0.2-1)
[2022-11-13 02:06] LABS: TOT PROT 8.5 g/dl (6.4-8.2)
[2022-11-13 02:41] LABS: URINE APPEARANCE CLEAR; URINE BILIRUBIN NEGATIVE (NEGATIVE); URINE COLOR YELLOW; URINE GLUCOSE (UA) NEGATIVE (NEGATIVE); URINE KETONE NEGATIVE (NEGATIVE); URINE LEUK ESTERASE NEGATIVE (NEGATIVE); URINE NITRITE NEGATIVE (NEGATIVE); URINE PROTEIN NEGATIVE (NEGATIVE); URINE UROBILINOGEN 0.2 mg/dL (0.2-1.0)
[2022-11-13 03:20] LABS: VENOUS BASE EXCESS 2.8 mmol/L (-2-2); VENOUS O2 SATURATION 45.4 % (70-80); VENOUS PCO2 53.3 mmHg (38-52); VENOUS PH 7.357 (7.310-7.410)
== END 2022-11-13 04:13 | disposition home or self-care (01) ==
LOC: JER 23:03
DX: R42 Dizziness and giddiness (principal)
CPT/HCPCS: 36415; 71045-TC-FY; 80053; 81003; 82803; 82962; 84484; 85025; 87086; 93005; 93010; 99285-25

== ENCOUNTER 2023-06-27 18:05 | Inpatient (IN) | payer OTHER ==
[2023-06-27] MEDS ORDERED: ACETAMINOPHEN 1000 MG/100 ML BAG IVPB ONE (18:34)
[2023-06-27] MEDS ORDERED: ACETAMINOPHEN INJECTION 100 ML IVPB ONE (18:43)
[2023-06-27 19:02] LABS: BASO % 1.1 % (0-2.0); EOS % 1.3 % (0-4.5); HEMATOCRIT 38.5 % (32.4-45.2); HEMOGLOBIN 12.7 GM/dL (10.7-15.3); LYMPH % 28.4 % (8-40); MCH 29.2 pg (25.7-33.7); MEAN CELL VOLUME 88.5 fl (80-96); MEAN PLT VOLUME 8.2 fl (7.5-11.1); MONO % 13.2 % (3.8-10.2); PLATELET COUNT 280 10^3/uL (134-434); RBC 4.35 M/mm3 (3.60-5.2); RDW 13.8 % (11.6-15.6); WHITE BLOOD COUNT 4.3 K/mm3 (4.0-10.0)
[2023-06-27] MEDS ORDERED: LABETALOL HCL 5 MG/1 ML (100MG/20 ML VIAL) IVPUSH ONE (19:05)
[2023-06-27 19:09] LABS: INR 0.97 (0.83-1.09); PROTHROMBIN TIME (PATIENT) 11.2 SEC (9.7-13.0)
[2023-06-27 19:11] LABS: ACTIVATED PTT 29.4 SECONDS (25.2-36.5)
[2023-06-27] MEDS ORDERED: LABETALOL HCL 20 MG/4 ML VIAL ONE (19:13)
[2023-06-27 19:17] LABS: EPI CELLS 27 /uL (0-25.1); HYALINE CASTS 0 /uL (0-3.1); PH,URINE 7.5 (5.0-8.0); URINE APPEARANCE CLEAR; URINE BACTERIA 57 /uL (0-1359); URINE BILIRUBIN NEGATIVE (NEGATIVE); URINE COLOR YELLOW; URINE GLUCOSE (UA) NEGATIVE (NEGATIVE); URINE KETONE NEGATIVE (NEGATIVE); URINE LEUK ESTERASE TRACE (NEGATIVE); URINE NITRITE NEGATIVE (NEGATIVE); URINE PROTEIN NEGATIVE (NEGATIVE); URINE RBC 10 /uL (0-23.9); URINE UROBILINOGEN 0.2 mg/dL (0.2-1.0); URINE WBC 20 /uL (0-25.8)
[2023-06-27 19:25] LABS: POTASSIUM 3.9 mmol/L (3.5-5.1)
[2023-06-27 19:28] LABS: CALCIUM 9.3 mg/dL (8.5-10.1)
[2023-06-27 19:29] LABS: ALBUMIN 3.2 g/dl (3.4-5.0); BLOOD UREA NITROGEN 14.7 mg/dL (7-18)
[2023-06-27 19:32] LABS: CREATININE 0.9 mg/dL (0.55-1.3)
[2023-06-27 19:33] LABS: BILIRUBIN,TOTAL 0.6 mg/dL (0.2-1); TOT PROT 7.3 g/dl (6.4-8.2)
[2023-06-27] MEDS ORDERED: hydrALAZINE HCL 20 MG/ML VIAL ONE (22:20)
[2023-06-27] MEDS: hydrALAZINE HCL 20 MG/ML VIAL IVPUSH PRN (22:24)
[2023-06-28 07:16] LABS: BASO % 0.6 % (0-2.0); EOS % 1.5 % (0-4.5); HEMATOCRIT 34.1 % (32.4-45.2); HEMOGLOBIN 11.1 GM/dL (10.7-15.3); MCH 29.2 pg (25.7-33.7); MCHC 32.5 g/dl (32.0-36.0); MEAN CELL VOLUME 89.8 fl (80-96); MEAN PLT VOLUME 8.4 fl (7.5-11.1); MONO % 12.9 % (3.8-10.2); PLATELET COUNT 262 10^3/uL (134-434); RBC 3.79 M/mm3 (3.60-5.2); RDW 13.8 % (11.6-15.6); WHITE BLOOD COUNT 4.4 K/mm3 (4.0-10.0)
[2023-06-28 07:35] LABS: POTASSIUM 3.5 mmol/L (3.5-5.1)
[2023-06-28 07:44] LABS: ALBUMIN 2.5 g/dl (3.4-5.0); BLOOD UREA NITROGEN 12.7 mg/dL (7-18); CALCIUM 8.9 mg/dL (8.5-10.1)
[2023-06-28 07:47] LABS: CREATININE 0.8 mg/dL (0.55-1.3); PHOSPHOROUS 3.3 mg/dL (2.5-4.9)
[2023-06-28 07:49] LABS: BILIRUBIN,TOTAL 0.6 mg/dL (0.2-1); TOT PROT 5.8 g/dl (6.4-8.2)
[2023-06-28] MEDS: CARVEDILOL 12.5 MG TABLET (FP) PO SCH ×2 (10:01→22:18)
[2023-06-28] MEDS: ENOXAPARIN NA (PORCINE) 40 MG/0.4 ML DISP.SYRIN SQ SCH (10:01)
[2023-06-28] MEDS: NIFEdipine E.R 60 MG TABLET PO SCH (10:02)
[2023-06-28] MEDS ORDERED: ASPIRIN 81 MG CHEWABLE TABLETS ONE (12:23)
[2023-06-28] MEDS: ASPIRIN 81 MG CHEWABLE TABLETS PO SCH (13:41)
[2023-06-28] MEDS: hydrALAZINE HCL 20 MG/ML VIAL IVPUSH PRN (19:02)
[2023-06-28] MEDS ORDERED: CARVEDILOL 12.5 MG TABLET (FP) ONE (21:27)
[2023-06-28] MEDS ORDERED: ATORVASTATIN CA 40 MG TABLET (FP) ONE (21:27)
[2023-06-28] MEDS ORDERED: ATORVASTATIN CA 40 MG TABLET (FP) PO SCH (22:00)
[2023-06-29 10:00] VITALS: RESP 18
[2023-06-29] MEDS ORDERED: POTASSIUM CHLORIDE TABS 20 MEQ TABLET.ER (FP) PO ONE (10:42)
[2023-06-29] MEDS: ENOXAPARIN NA (PORCINE) 40 MG/0.4 ML DISP.SYRIN SQ SCH (10:46)
[2023-06-29] MEDS: CARVEDILOL 12.5 MG TABLET (FP) PO SCH (10:46)
[2023-06-29] MEDS: NIFEdipine E.R 60 MG TABLET PO SCH (10:46)
[2023-06-29] MEDS: ASPIRIN 81 MG CHEWABLE TABLETS PO SCH (10:46)
[2023-06-29 14:34] VITALS: BMI 25.7
[2023-06-29 18:41] VITALS: BP 116/83; PULSE 77; TEMP 97.9
== END 2023-06-29 18:58 | disposition home or self-care (01) | DRG 79 ==
LOC: JER 18:05 → JERBED 20:55 → J4W 06-28 22:54
PROVIDERS: ADMIT Internal Medicine; ATTEND Internal Medicine
DX: I67.4 Hypertensive encephalopathy (principal); I10 Essential (primary) hypertension; E78.5 Hyperlipidemia, unspecified; I25.10 Atherosclerotic heart disease of native coronary artery without angina pectoris; E11.9 Type 2 diabetes mellitus without complications; K21.9 Gastro-esophageal reflux disease without esophagitis; R41.82 Altered mental status, unspecified; I70.0 Atherosclerosis of aorta; I25.2 Old myocardial infarction; R51.9 Headache, unspecified; Z95.5 Presence of coronary angioplasty implant and graft; Z86.73 Personal history of transient ischemic attack (TIA), and cerebral infarction without residual deficits
CPT/HCPCS: 0241U-QW; 36415; 70450-TC; 70551-TC; 71045-TC-FY; 80053; 80061; 81003; 82962; 83735; 84100; 84484; 85025; 85610; 85730; 86850; 86900; 86901; 93005; 93010; 93306-TC; 99285-25

== ENCOUNTER 2023-10-31 11:34 | Emergency (ER) | payer OTHER ==
[2023-10-31 12:05] VITALS: RESP 18
[2023-10-31 12:09] VITALS: BMI 25.0
[2023-10-31 14:28] LABS: BASO % 1.5 % (0-2.0); EOS % 1.7 % (0-4.5); HEMATOCRIT 37.1 % (32.4-45.2); HEMOGLOBIN 12.2 GM/dL (10.7-15.3); LYMPH % 34.5 % (8-40); MCH 29.9 pg (25.7-33.7); MEAN CELL VOLUME 90.7 fl (80-96); MEAN PLT VOLUME 8.5 fl (7.5-11.1); MONO % 9.3 % (3.8-10.2); PLATELET COUNT 301 10^3/uL (134-434); RBC 4.09 M/mm3 (3.60-5.2); RDW 13.7 % (11.6-15.6)
[2023-10-31 14:33] LABS: INR 1.03 (0.83-1.09); PROTHROMBIN TIME (PATIENT) 11.9 SEC (9.7-13.0)
[2023-10-31 14:36] LABS: ACTIVATED PTT 32.3 SECONDS (25.2-36.5)
[2023-10-31 14:52] LABS: POTASSIUM 3.7 mmol/L (3.5-5.1)
[2023-10-31 14:53] LABS: CALCIUM 9.1 mg/dL (8.5-10.1)
[2023-10-31 14:54] LABS: BLOOD UREA NITROGEN 11.8 mg/dL (7-18)
[2023-10-31 14:57] LABS: CREATININE 0.8 mg/dL (0.55-1.3)
[2023-10-31 14:58] LABS: TOT PROT 7.3 g/dl (6.4-8.2)
[2023-10-31 14:59] LABS: BILIRUBIN,TOTAL 0.4 mg/dL (0.2-1)
[2023-10-31 16:31] VITALS: BP 174/80; PULSE 63; TEMP 97.9
[2023-10-31 16:38] LABS: PH,URINE 6.5 (5.0-8.0); URINE APPEARANCE CLEAR; URINE BILIRUBIN NEGATIVE (NEGATIVE); URINE COLOR YELLOW; URINE GLUCOSE (UA) NEGATIVE (NEGATIVE); URINE KETONE NEGATIVE (NEGATIVE); URINE LEUK ESTERASE NEGATIVE (NEGATIVE); URINE NITRITE NEGATIVE (NEGATIVE); URINE PROTEIN NEGATIVE (NEGATIVE); URINE UROBILINOGEN 0.2 mg/dL (0.2-1.0)
== END 2023-10-31 19:33 | disposition home or self-care (01) ==
LOC: JER 11:34
DX: I10 Essential (primary) hypertension (principal); R41.0 Disorientation, unspecified; Z20.822 Contact with and (suspected) exposure to COVID-19
CPT/HCPCS: 0241U-QW; 36415; 70450-TC; 71045-TC-FY; 80053; 81003; 84484; 85025; 85610; 85730; 87086; 93005; 93010; 99285-25

== ENCOUNTER 2023-12-03 01:53 | Inpatient (IN) | payer BC, OTHER ==
[2023-12-03] MEDS: ACETAMINOPHEN 1000 MG/100 ML BAG IVPB ONE (04:27)
[2023-12-03] MEDS ORDERED: ACETAMINOPHEN INJECTION 100 ML IVPB ONE (04:29)
[2023-12-03 04:35] LABS: BASO % 0.5 % (0-2.0); EOS % 0.1 % (0-4.5); HEMATOCRIT 40.9 % (32.4-45.2); LYMPH % 10.6 % (8-40); MCHC 34.1 g/dl (32.0-36.0); MEAN CELL VOLUME 87.8 fl (80-96); MEAN PLT VOLUME 8.8 fl (7.5-11.1); MONO % 14.1 % (3.8-10.2); NEUT % 74.7 % (42.8-82.8); PLATELET COUNT 249 10^3/uL (134-434); RBC 4.66 M/mm3 (3.60-5.2); RDW 13.9 % (11.6-15.6); WHITE BLOOD COUNT 5.3 K/mm3 (4.0-10.0)
[2023-12-03 04:44] LABS: INR 1.14 (0.83-1.09); PROTHROMBIN TIME (PATIENT) 13.2 SEC (9.7-13.0)
[2023-12-03 04:47] LABS: ACTIVATED PTT 32.7 SECONDS (25.2-36.5)
[2023-12-03 04:52] LABS: POTASSIUM 3.5 mmol/L (3.5-5.1)
[2023-12-03 04:55] LABS: ALBUMIN 2.8 g/dl (3.4-5.0); CALCIUM 9.3 mg/dL (8.5-10.1)
[2023-12-03 04:56] LABS: BLOOD UREA NITROGEN 15.1 mg/dL (7-18)
[2023-12-03 04:59] LABS: CREATININE 0.9 mg/dL (0.55-1.3)
[2023-12-03 05:00] LABS: BILIRUBIN,TOTAL 0.5 mg/dL (0.2-1); TOT PROT 7.1 g/dl (6.4-8.2)
[2023-12-03] MEDS ORDERED: ASPIRIN 81 MG CHEWABLE TABLETS ONE (07:05)
[2023-12-03] MEDS: ASPIRIN 81 MG CHEWABLE TABLETS PO ONE (07:10)
[2023-12-03] MEDS ORDERED: ASPIRIN COATED 81 MG TABLET.EC ONE (10:11)
[2023-12-03] MEDS ORDERED: CARVEDILOL 12.5 MG TABLET (FP) ONE ×2 (10:11→21:42)
[2023-12-03] MEDS ORDERED: PANTOPRAZOLE 40 MG TABLET PO ONE (10:11)
[2023-12-03] MEDS ORDERED: LISINOPRIL 20 MG TABLET ONE (10:12)
[2023-12-03] MEDS ORDERED: NIFEdipine E.R. 30 MG TABLET PO ONE (10:12)
[2023-12-03] MEDS ORDERED: OSELTAMIVIR PHOSPHATE 75 MG CAPSULE ONE (10:13)
[2023-12-03] MEDS ORDERED: ENOXAPARIN NA (PORCINE) 40 MG/0.4 ML DISP.SYRIN SQ ONE (10:13)
[2023-12-03] MEDS: ASPIRIN COATED 81 MG TABLET.EC PO SCH (10:22)
[2023-12-03] MEDS: CARVEDILOL 12.5 MG TABLET (FP) PO SCH (10:22)
[2023-12-03] MEDS: OSELTAMIVIR PHOSPHATE 75 MG CAPSULE PO SCH (10:23)
[2023-12-03] MEDS: PANTOPRAZOLE 40 MG TABLET PO SCH (10:23)
[2023-12-03] MEDS: NIFEdipine E.R. 30 MG TABLET PO SCH (10:23)
[2023-12-03] MEDS: ENOXAPARIN NA (PORCINE) 40 MG/0.4 ML DISP.SYRIN SQ SCH (10:23)
[2023-12-03] MEDS: LISINOPRIL 20 MG TABLET PO SCH (10:23)
[2023-12-03 14:59] LABS: EPI CELLS 25 /uL (0-25.1); HYALINE CASTS 4 /uL (0-3.1); PH,URINE 5.5 (5.0-8.0); URINE APPEARANCE CLEAR; URINE BACTERIA 18 /uL (0-1359); URINE BILIRUBIN NEGATIVE (NEGATIVE); URINE COLOR YELLOW; URINE GLUCOSE (UA) NEGATIVE (NEGATIVE); URINE KETONE TRACE (NEGATIVE); URINE LEUK ESTERASE NEGATIVE (NEGATIVE); URINE NITRITE NEGATIVE (NEGATIVE); URINE PROTEIN 1+ (NEGATIVE); URINE UROBILINOGEN 0.2 mg/dL (0.2-1.0); URINE WBC 16 /uL (0-25.8)
[2023-12-03 15:00] LABS: URINE RBC 22.3 /uL (0-23.9)
[2023-12-03] MEDS ORDERED: ACETAMINOPHEN 325 MG TABLET (FP) ONE (17:22)
[2023-12-03] MEDS: ACETAMINOPHEN 325 MG TABLET (FP) PO PRN (17:25)
[2023-12-03] MEDS ORDERED: ATORVASTATIN CA 40 MG TABLET (FP) ONE (21:42)
[2023-12-03] MEDS: ATORVASTATIN CA 40 MG TABLET (FP) PO SCH (21:49)
[2023-12-04 06:46] LABS: HEMATOCRIT 38.3 % (32.4-45.2); HEMOGLOBIN 12.8 GM/dL (10.7-15.3); MCH 29.7 pg (25.7-33.7); MCHC 33.4 g/dl (32.0-36.0); MEAN CELL VOLUME 88.8 fl (80-96); MEAN PLT VOLUME 8.8 fl (7.5-11.1); PLATELET COUNT 220 10^3/uL (134-434); RBC 4.31 M/mm3 (3.60-5.2); RDW 13.7 % (11.6-15.6); WHITE BLOOD COUNT 2.6 K/mm3 (4.0-10.0)
[2023-12-04 07:03] LABS: POTASSIUM 3.6 mmol/L (3.5-5.1)
[2023-12-04 07:06] LABS: CALCIUM 8.7 mg/dL (8.5-10.1)
[2023-12-04 07:07] LABS: ALBUMIN 2.4 g/dl (3.4-5.0); BLOOD UREA NITROGEN 33.7 mg/dL (7-18); MAGNESIUM 1.9 mg/dL (1.8-2.4)
[2023-12-04 07:10] LABS: CREATININE 1.5 mg/dL (0.55-1.3)
[2023-12-04 07:12] LABS: BILIRUBIN,TOTAL 0.3 mg/dL (0.2-1); TOT PROT 6.3 g/dl (6.4-8.2)
[2023-12-04 08:37] LABS: ANISOCYTOSIS 0; MACROCYTOSIS 0
[2023-12-04] MEDS: SODIUM CHLORIDE 0.9% 500 ML INFUS.BAG IV ONE (12:06)
[2023-12-04] MEDS: POTASSIUM CHLORIDE 10 MEQ in SODIUM CHLORIDE 0.45% 1,000 ML IVPB SCH (16:58)
[2023-12-04] MEDS ORDERED: ATORVASTATIN CA 40 MG TABLET (FP) ONE (23:08)
[2023-12-05 07:42] LABS: POTASSIUM 3.2 mmol/L (3.5-5.1)
[2023-12-05 07:49] LABS: CALCIUM 9.1 mg/dL (8.5-10.1)
[2023-12-05 07:50] LABS: ALBUMIN 2.8 g/dl (3.4-5.0); BLOOD UREA NITROGEN 29.5 mg/dL (7-18)
[2023-12-05 07:53] LABS: CREATININE 1.1 mg/dL (0.55-1.3)
[2023-12-05 07:54] LABS: TOT PROT 7.1 g/dl (6.4-8.2)
[2023-12-05 07:55] LABS: BILIRUBIN,TOTAL 0.4 mg/dL (0.2-1)
[2023-12-05] MEDS ORDERED: POTASSIUM CHLORIDE ORAL LIQUID 20 MEQ/15 ML ONE (18:09)
[2023-12-05] MEDS ORDERED: CEFTRIAXONE 1 GM/50 ML BAG ONE (18:10)
[2023-12-05] MEDS: POTASSIUM CHLORIDE ORAL LIQUID 20 MEQ/15 ML PO ONE (18:15)
[2023-12-05] MEDS: CEFTRIAXONE 1 GM in DEXTROSE 5%-WATER - 50 ML IVPB SCH (18:37)
[2023-12-05] MEDS ORDERED: OSELTAMIVIR PHOSPHATE 45 MG CAPSULE PO SCH ×2 (22:00)
[2023-12-05 22:12] VITALS: RESP 18
[2023-12-05 23:29] VITALS: BMI 24.9
[2023-12-06] MEDS ORDERED: MELATONIN 1 MG TABLET PO PRN (00:13)
[2023-12-06] MEDS ORDERED: HALOPERIDOL LACTATE 5 MG/ML IM PRN (04:30)
[2023-12-06] MEDS ORDERED: ACETAMINOPHEN 325 MG TABLET (FP) PO PRN (07:18)
[2023-12-06] MEDS: OSELTAMIVIR PHOSPHATE 30 MG CAPSULE PO SCH (07:27)
[2023-12-06 08:44] LABS: BASO % 0.7 % (0-2.0); EOS % 1.9 % (0-4.5); HEMOGLOBIN 12.3 GM/dL (10.7-15.3); MCH 28.7 pg (25.7-33.7); MCHC 32.4 g/dl (32.0-36.0); MEAN CELL VOLUME 88.5 fl (80-96); MEAN PLT VOLUME 8.7 fl (7.5-11.1); MONO % 18.3 % (3.8-10.2); NEUT % 53.1 % (42.8-82.8); PLATELET COUNT 241 10^3/uL (134-434); RDW 13.3 % (11.6-15.6); WHITE BLOOD COUNT 3.8 K/mm3 (4.0-10.0)
[2023-12-06 09:03] LABS: POTASSIUM 3.8 mmol/L (3.5-5.1)
[2023-12-06 09:09] LABS: CALCIUM 9.1 mg/dL (8.5-10.1)
[2023-12-06 09:10] LABS: ALBUMIN 2.5 g/dl (3.4-5.0); BLOOD UREA NITROGEN 24.5 mg/dL (7-18)
[2023-12-06] MEDS: PANTOPRAZOLE 40 MG TABLET PO SCH (09:10)
[2023-12-06] MEDS: ENOXAPARIN NA (PORCINE) 40 MG/0.4 ML DISP.SYRIN SQ SCH (09:10)
[2023-12-06] MEDS: ASPIRIN COATED 81 MG TABLET.EC PO SCH (09:10)
[2023-12-06 09:13] LABS: CREATININE 0.8 mg/dL (0.55-1.3)
[2023-12-06 09:14] LABS: BILIRUBIN,TOTAL 0.5 mg/dL (0.2-1); TOT PROT 6.3 g/dl (6.4-8.2)
[2023-12-06] MEDS: FLU VACCINE (FLULAVAL) PF 60 MCG/0.5 ML SYRINGE 2023-2024 IM ONE (11:33)
[2023-12-06] MEDS: PNEUMOC 20-VAL CONJ-DIP CRM/PF 0.5 ML SYRINGE IM ONE (11:39)
[2023-12-06] MEDS: ATORVASTATIN CA 40 MG TABLET (FP) PO SCH (22:02)
[2023-12-07] MEDS: MULTIVITAMINS (DAILY MVI) TABLET (FP) PO SCH (09:52)
[2023-12-07 09:54] LABS: BASO % 0.7 % (0-2.0); EOS % 2.1 % (0-4.5); HEMATOCRIT 36.7 % (32.4-45.2); HEMOGLOBIN 12.6 GM/dL (10.7-15.3); MCH 30.1 pg (25.7-33.7); MCHC 34.5 g/dl (32.0-36.0); MEAN CELL VOLUME 87.2 fl (80-96); MEAN PLT VOLUME 8.9 fl (7.5-11.1); MONO % 16.7 % (3.8-10.2); NEUT % 46.5 % (42.8-82.8); PLATELET COUNT 247 10^3/uL (134-434); RBC 4.21 M/mm3 (3.60-5.2); RDW 13.8 % (11.6-15.6)
[2023-12-08 16:17] VITALS: BP 142/69; PULSE 73; TEMP 98.2
== END 2023-12-08 16:38 | disposition home or self-care (01) | DRG 194 ==
LOC: JER 01:53 → JERBED 07:02 → UNDOADMOB 07:02 → INTOOBSV 07:02 → JERBED 08:31 → J8W 12-05 20:40 → OBSVTOIN 12-07 10:57
PROVIDERS: ADMIT Internal Medicine; ATTEND Nurse Practitioner Family
DX: J10.1 Influenza due to other identified influenza virus with other respiratory manifestations (principal); N17.9 Acute kidney failure, unspecified; N39.0 Urinary tract infection, site not specified; I25.10 Atherosclerotic heart disease of native coronary artery without angina pectoris; I10 Essential (primary) hypertension; E78.5 Hyperlipidemia, unspecified; N28.1 Cyst of kidney, acquired; R79.89 Other specified abnormal findings of blood chemistry; R55 Syncope and collapse; E11.9 Type 2 diabetes mellitus without complications; B96.20 Unspecified Escherichia coli [E. coli] as the cause of diseases classified elsewhere; W18.30XA Fall on same level, unspecified, initial encounter; Y93.9 Activity, unspecified; Y92.009 Unspecified place in unspecified non-institutional (private) residence as the place of occurrence of the external cause; Z86.73 Personal history of transient ischemic attack (TIA), and cerebral infarction without residual deficits; Z95.5 Presence of coronary angioplasty implant and graft
CPT/HCPCS: 0241U-QW; 36415; 70450-TC; 71045-TC-FY; 72125-TC; 72170-TC-FY; 73552-TC-LT-FY; 73590-TC-LT-FY; 76775-TC; 80053; 81003; 82550; 83735; 84484; 85025; 85610; 85730; 86850; 86900; 86901; 87086; 87186; 90677; 90686; 93005; 93010; 97116-GP; 97161-GP; 99285-25; G0008; G0378; J0131

== ENCOUNTER 2025-02-23 23:31 | Emergency (ER) | payer OTHER ==
[2025-02-23 23:43] VITALS: BP 143/83; PULSE 84; RESP 20; TEMP 98.2; BMI 23.3
[2025-02-24 00:22] LABS: ABSOLUTE IMMATURE GRANULOCYTES 0.02 x10^3/uL (0.0-0.031); MEAN PLT VOLUME 9.8 fl (9.4-12.3)
[2025-02-24 00:23] LABS: BASOPHILS # 0.02 x10^3/uL (0.01-0.08); EOSINOPHIL % 1.6 % (0.7-5.8); EOSINOPHILS # 0.07 x10^3/uL (0.04-0.36); HEMATOCRIT 33.1 % (34.1-44.9); HEMOGLOBIN 10.4 g/dL (11.2-15.7); MCHC 31.4 g/dl (32.2-35.5); MEAN CELL VOLUME 93.5 fl (79.4-94.8); MONOCYTE # 0.72 x10^3/uL (0.24-0.86); MONOCYTE % 16.1 % (4.7-12.5); PLATELET COUNT 229 x10^3/uL (182-369); RDW 13.3 % (12.4-16.6)
[2025-02-24] MEDS ORDERED: ACETAMINOPHEN 325 MG TABLET (FP) ONE (00:51)
[2025-02-24 00:58] LABS: POTASSIUM 3.8 mmol/L (3.5-5.1)
[2025-02-24 00:59] LABS: CALCIUM 9.1 mg/dL (8.5-10.1)
[2025-02-24 01:00] LABS: ALBUMIN 2.6 g/dl (3.4-5.0)
[2025-02-24 01:03] LABS: CREATININE 0.9 mg/dL (0.55-1.3)
[2025-02-24 01:05] LABS: BILIRUBIN,TOTAL 0.3 mg/dL (0.2-1); TOT PROT 6.1 g/dl (6.4-8.2)
[2025-02-24] MEDS: ACETAMINOPHEN 325 MG TABLET (FP) PO ONE (01:05)
[2025-02-24] MEDS ORDERED: DALBAVANCIN HCL 500 MG VIAL (RESTRICTED TO ID ONLY) IVPB ONE (01:48)
[2025-02-24] MEDS: DALBAVANCIN HCL 1,500 MG in DEXTROSE 5%-WATER - 500 ML IVPB ONE (02:00)
[2025-02-24] MEDS ORDERED: VALSARTAN 80 MG TABLET ONE (03:45)
[2025-02-24] MEDS: VALSARTAN 80 MG TABLET PO ONE (03:47)
[2025-02-24] MEDS ORDERED: NIFEdipine E.R. 30 MG TABLET PO SCH (10:00)
== END 2025-02-24 05:20 | disposition home or self-care (01) ==
LOC: JER 23:31
DX: M79.605 Pain in left leg (principal)
CPT/HCPCS: 36415; 71045-TC-FY; 80053; 85025; 93971-TC; 96365; 99283-25; J0875